=== PATIENT | female | born 1955 | race Caucasian/White ===

== ENCOUNTER → 2017-12-20 08:36 | Outpatient (CLI) | payer MEDICAID, SELFPAY ==
--- NOTE | 2017-12-20 08:45 | MM_ITS ---
MM Dig screening mamm BI w/CAD CAD Screening COMPARISON: Digital mammograms 06/01/2016 and additional views right breast 06/18/2016 and digital mammograms 05/13/2015. INDICATION: There is a history of breast cancer in the patient's 2 paternal aunts. TECHNIQUE: Standard CC and MLO images were obtained. R2 CAD reviewed. FINDINGS: There is a diffusely dense and heterogenic parenchymal pattern lessening the sensitivity of mammography. The possible asymmetric density deep within the outer quadrant right breast seen on the additional views 06/18/2016 is not definitely appreciated. It was noted to be possible cyst on ultrasound exam and may have decompressed. There is no new or suspicious lesion in either breast and there are no suspicious microcalcifications. IMPRESSION: Diffusely dense parenchymal pattern with no suspicious lesion seen BI-RADS Category: 1 Negative RECOMMENDED FOLLOW-UP: 1YR - 1 YEAR FOLLOW-UP (A letter has been sent to the patient regarding results of the study.)
--- NOTE | 2017-12-20 08:45 | XR_ITS ---
DEXA SCAN.-BONE DENSITY STUDY HIPS AND LUMBAR SPINE HISTORY: Postmenopausal female 62-year-old previous bone density study. Previous bone fractures. Toe at age 58. Right ankle age 24. Nonsmoker. Currently on hormone replacement. At least calcified supplements. TECHNIQUE: DEXA scan hip and lumbar spine The most complete data summary and color graphic presentation of the today's ( and any prior ) DEXA findings are available in PACS. Definition and treatment guidelines included. COMPARISON: June 2016 LUMBAR SPINE: L4 vertebral body demonstrates osteopenia and the lowest T score -2.0 with BMD0.955g/cm sq L2 also demonstrates osteopenia with T score of -1.5 & BMD 1.026 g/cm sq Overall mean lumbar L1-L4 T score -1.4 with BMD1.01 g/cm sq . June 2016 DEXA. Mean T score -1.9 with BMD was0.947g/cm sq Thus when comparing today's study to the prior exam there's been a 2.6 % increasing mean bone density at the lumbar spine. . The position appears comparable and there does appear to be increased density at each vertebral level measured observed. I will would also note there is increased density at the spinous process of L3 which is likely projectional a but does not seem to significantly contribute or account for the increased. HIPS: Femoral neck density is best predictor of hip fracture risk . Left femoral neck demonstrates the lowest T score -1.8 with BMD0.783 g/cm sq . Right femoral neck T score the -1.7 with BMD 0.796 Averaging region yields today's overall Hip Mean T score 1.2 with BMD0.86 g/cm sq . June 2016 DEXA T score -1.3 with mean BMD0.84 g/cm sq Thus this reflects a 2.3% increasein overall mean bone density at the hips in the interval.. IMPRESSION 1. LUMBAR SPINE: Overall osteopenia/ with overall lumbar T score -1.4. Most pronounced osteopenia is at L4 with T score -2.0 ... However also note over 6% increased overall bone density lumbar spine since 2016. 2. HIPS:. Osteopenia at hips with overall hip T score -1.2 Osteopenia femoral necks bilaterally with lower left femoral neck T score -1.8 ... However also note the slight overall increased bone density at the hips since 2016 by 2.3% WHO criteria for post-menopausal, Women: Normal: T-score at or above -1 SD Osteopenia: T-score between -1 and -2.5 SD Osteoporosis: T-score at or below -2.5 SD
== END ==
PROVIDERS: Family Provider Emergency Medicine; PCP Emergency Medicine; Visit Provider Obstetrics & Gynecology
DX: Z12.31 Encounter for screening mammogram for malignant neoplasm of breast (principal); Z78.0 Asymptomatic menopausal state; Z13.820 Encounter for screening for osteoporosis
CPT/HCPCS: 77067; 77080

== ENCOUNTER → 2018-01-12 10:52 | Outpatient (CLI) | payer MEDICAID, SELFPAY ==
--- NOTE | 2018-01-12 12:00 | XR_ITS ---
XR chest 2V HISTORY: ITS.REASON: fever ORDERING PHYSICIAN: DORITA Meza PATIENT AGE: 62 years COMPARISON: FINDINGS: The cardiomediastinal silhouette and pulmonary vascularity are within normal limits. Consolidation is present in the left lower lobe posteriorly consistent with pneumonia. Recommend follow-up until clear. No obvious effusion. Remaining lungs are clear. No acute bony anomalies. IMPRESSION: Left lower lobe pneumonia
[2018-01-12 12:06] LABS: Basophils % 0.4 % (0.1-2.0); Eosinophils # 0.1 K/mm3 (0.0-0.4); Eosinophils % 1.3 % (0.1-12.0); Hematocrit 42.1 % (37.0-47.0); Hemoglobin 13.8 g/dL (12.2-16.2); Lymphocytes # 1.3 K/mm3 (0.7-4.5); Lymphocytes % 17.7 K/mm3 (10-50); Mean Corpuscular HGB Conc 32.8 g/dL (31.8-35.4); Mean Corpuscular Hemoglobin 30.8 pg (27.0-31.2); Mean Corpuscular Volume 93.8 fl (81-99); Mean Platelet Volume 7.7 fl (7.4-10.4); Monocytes # 0.5 K/mm3 (0.1-1.0); Monocytes % 6.4 % (1.7-9.3); Neutrophils # 5.3 K/mm3 (1.8-7.8); Neutrophils % 74.1 % (37.0-80.0); Platelet Count 230 K/mm3 (142-424); Red Blood Count 4.49 M/mm3 (4.20-5.40); Red Cell Distribution Width 12.5 % (11.5-17.5); White Blood Count 7.1 K/mm3 (4.8-10.8)
[2018-01-12 13:51] LABS: Alanine Aminotransferase 34 U/L (12-78); Albumin Level 3.7 gm/dL (3.4-5.0); Albumin/Globulin Ratio 1.2 (1.1-1.8); Alkaline Phosphatase 80 U/L (46-116); Anion Gap 15.6 mEq/L (5-15); Aspartate Amino Transferase 25 U/L (15-37); Bilirubin,Total 0.4 mg/dL (0.2-1.0); Blood Urea Nitrogen 9 mg/dL (7-18); Calcium 9.5 mg/dL (8.5-10.1); Carbon Dioxide 26 mmol/L (21.0-32.0); Chloride 103 mmol/L (98-107); Creatinine,Serum 0.73 mg/dL (0.55-1.02); Estimated Glomerular Filt Rate 80 ml/min (>60); GFR (African American) 97 ML/MIN (>60); Globulin 3.1 gm/dl (1.3-3.2); Glucose 98 mg/dL (74-106); Potassium 4.6 mmoL/L (3.5-5.1); Sodium 140 mmol/L (136-145); Total Protein,Serum 6.8 gm/dL (6.4-8.2)
== END ==
PROVIDERS: Visit Provider Physician Assistant
DX: R50.9 Fever, unspecified (principal); M54.9 Dorsalgia, unspecified
CPT/HCPCS: 36415; 71046; 80053; 85025; 87086

== ENCOUNTER 2018-02-13 08:06 | Observation (INO) ==
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
[2018-02-13 08:34] LABS: Basophils # 0.1 K/mm3 (0-0.2); Basophils % 0.4 % (0.1-2.0); Eosinophils # 0.6 K/mm3 (0.0-0.4); Eosinophils % 3.4 % (0.1-12.0); Hematocrit 44.2 % (37.0-47.0); Hemoglobin 14.7 g/dL (12.2-16.2); Lymphocytes # 1.6 K/mm3 (0.7-4.5); Lymphocytes % 9.7 K/mm3 (10-50); Mean Corpuscular HGB Conc 33.3 g/dL (31.8-35.4); Mean Corpuscular Hemoglobin 30.1 pg (27.0-31.2); Mean Corpuscular Volume 90.4 fl (81-99); Mean Platelet Volume 6.8 fl (7.4-10.4); Monocytes # 0.7 K/mm3 (0.1-1.0); Monocytes % 4.2 % (1.7-9.3); Neutrophils # 13.5 K/mm3 (1.8-7.8); Neutrophils % 82.3 % (37.0-80.0); Platelet Count 289 K/mm3 (142-424); Red Blood Count 4.89 M/mm3 (4.20-5.40); Red Cell Distribution Width 12.9 % (11.5-17.5); White Blood Count 16.4 K/mm3 (4.8-10.8)
[2018-02-13 08:46] LABS: Albumin Level 2.8 gm/dL (3.4-5.0); Albumin/Globulin Ratio 0.7 (1.1-1.8); Anion Gap 14.4 mEq/L (5-15); Bilirubin,Total 0.5 mg/dL (0.2-1.0); Calcium 8.8 mg/dL (8.5-10.1); Potassium 3.4 mmoL/L (3.5-5.1); Total Protein,Serum 6.8 gm/dL (6.4-8.2)
[2018-02-13 08:52] LABS: Eosinophils % 2 % (0-3); Lymphocytes % 8 % (10-50); Monocytes % 6 % (2-9); Neutrophils % 82 % (42-76); Total Cells Counted 100
[2018-02-13 08:53] LABS: RBC Morphology Normal
--- NOTE | 2018-02-13 12:59 | Pharmacy Consult Notes ---
[facility] Pharmacy VTE Monitoring - Patient Demographics Admission date: 02/13/18 Report Date: 02/13/18 Time: 12:59 Allergies/Adverse Reactions: Patient Allergies iodine [IODINE] Allergy (Severe, Verified 02/02/18 08:49) I-HIVES/ITCHING bacitracin [From NEOSPORIN ([id number])] Allergy (Intermediate, Verified 08:49) I-HIVES (PT STATES IT IS RELATED TO THE NICKEL IN IT) latex [LATEX] Allergy (Intermediate, Verified 02/02/18 08:49) I-ITCHING mercury (elemental) [MERCURY (ELEMENTAL)] Allergy (Intermediate, Verified 08:49) I-HIVES neomycin [From NEOSPORIN ([id number])] Allergy (Intermediate, Verified 08:49) I-HIVES (PT STATES IT IS RELATED TO THE NICKEL IN IT) nickel [NICKEL] Allergy (Intermediate, Verified 02/02/18 08:49) I-HIVES polymyxin B [From NEOSPORIN ([id number])] Allergy (Intermediate, Verified 08:49) I-HIVES (PT STATES IT IS RELATED TO THE NICKEL IN IT) povidone-iodine [From BETADINE] Allergy (Intermediate, Verified 02/02/18 08:49) I-HIVES shellfish derived [From SHELLFISH (FOOD/DRUG)] Allergy (Intermediate, Verified 02/02/18 08:49) I-HIVES soap [From BETADINE] Allergy (Intermediate, Verified 02/02/18 08:49) I-HIVES codeine [CODEINE] Adverse Reaction (Unknown, Verified 02/02/18 08:49) NA-NAUSEA/VOMITING Height: 1.65 m Weight: 65.317 kg Patient Problems: Current Active Problems Clostridium difficile infection (Acute) - VTE Risk Labs: VTE Related Lab Results Hgb 14.7 g/dL (12.2-16.2) 02/13/18 08:20 Hct 44.2 % (37.0-47.0) 02/13/18 08:20 Plt Count 289 K/mm3 (142-424) 02/13/18 08:20 BUN 4 mg/dL (7-18) L 02/13/18 08:20 Creatinine 0.78 mg/dL (0.55-1.02) 02/13/18 08:20 Estimated Creat Clear 57 mL/min (0-300) 02/13/18 08:20 - Prophylaxis VTE Prophylaxis Ordered?: Yes Types of VTE Prophylaxis: TEDS Knee High Location of Applied Device: Bilateral Lower Extremeties - VTE Diagnosis Confirmed Treatment or plan recommended: Continue Current Treatment
--- NOTE | 2018-02-13 15:20 | History & Physical Report ---
*Admission Date: 02/13/18 *Chief complaint: Diarrhea *History of present illness: Patient presented to ER with 4 day history of abdominal pain and diarrhea. No fever. Had taken OTC meds with no relief. Thought she might be getting dehydrated. Found to have C diff, an elevated white count, and signs of dehydration. She was treated on 01/12/18 with antibiotics for LLL pneumonia, which seems to be almost completely resolved on CXR today, and again on 02/02/18 for sore throat. [facility] History I have reviewed the patient's past medical history: Yes Medical History: Reports:: Anxiety, Hyperlipidemia, Hypertension, Seizures Denies:: Cancer, Diabetes Mellitus Type 1, Diabetes Mellitus Type 2, MRSA Other Medical History: Reports: Anemia, Other Other Surgeries: Yes: Colonoscopy, , Dilation and Curettage, Hysterectomy-Total, Other Amputation: No Fractures: No - *Social History Educational Level: Attended College Smoking Status: Never smoker Tobacco Type: cigarettes # Packs/Day (cigarettes): 1 Alcohol Intake: never Substance Use Type: denies use Occupational Status: employed Housing: house Household Members: none - Psychiatric History Expresses thoughts of harming self/others: None Suicide Plan Description: No Plan Pschychiatric History:: Reports:: Anxiety *Family Hx:: Hypertension, Anemia, Diabetes Review of Systems - Review of Systems Review of systems:: pertinent systems reviewed and negative unless documented below - Constitutional Reports fatigue, Reports malaise - *Gastrointestinal Reports abdominal pain, Reports loose stools, Reports nausea, Reports vomiting, Denies bright, red blood in stools, Denies black, tarry stools Meds Home Medications Medication Instructions Recorded Confirmed Type ascorbic acid (vitamin C) 500 mg 500 mg PO DAILY 09/27/17 02/13/18 History capsule aspirin 81 mg tablet,delayed 81 mg PO DAILY 09/27/17 02/13/18 History release cholecalciferol (vitamin D3) 1,000 1,000 unit PO DAILY 09/27/17 02/13/18 History unit capsule fluticasone 50 mcg/actuation nasal 50 mcg INTRANASAL DAILY 09/27/17 02/13/18 History spray,suspension vitamin B complex tablet 1 tab PO DAILY 09/27/17 02/13/18 History alprazolam 0.25 mg tablet 0.25 mg PO BID PRN 11/15/17 02/13/18 History gabapentin 800 mg tablet 1,600 mg PO HS tab 01/31/18 02/13/18 History Alendronate Sodium [Fosamax] 70 mg PO WEEKLY 02/13/18 02/13/18 History Cetirizine HCl [Zyrtec] 10 mg PO DAILY 02/13/18 02/13/18 History Estradiol 2 mg PO DAILY 02/13/18 02/13/18 History Simvastatin 20 mg PO DAILY 02/13/18 02/13/18 History Allergies Allergy/AdvReac Type Severity Reaction Status Date / Time iodine [IODINE] Allergy Severe I-HIVES/ITC Verified 02/02/18 08:49 SAMMY bacitracin Allergy Intermediate I-HIVES Verified 02/02/18 08:49 [From NEOSPORIN (PT STATES ([id number])] IT IS RELATED TO THE NICKEL IN IT) latex [LATEX] Allergy Intermediate I-ITCHING Verified 02/02/18 08:49 mercury (elemental) Allergy Intermediate I-HIVES Verified 02/02/18 08:49 [MERCURY (ELEMENTAL)] neomycin Allergy Intermediate I-HIVES Verified 02/02/18 08:49 [From NEOSPORIN (PT STATES ([id number])] IT IS RELATED TO THE NICKEL IN IT) nickel [NICKEL] Allergy Intermediate I-HIVES Verified 02/02/18 08:49 polymyxin B Allergy Intermediate I-HIVES Verified 02/02/18 08:49 [From NEOSPORIN (PT STATES ([id number])] IT IS RELATED TO THE NICKEL IN IT) povidone-iodine Allergy Intermediate I-HIVES Verified 02/02/18 08:49 [From BETADINE] shellfish derived Allergy Intermediate I-HIVES Verified 02/02/18 08:49 [From SHELLFISH (FOOD/DRUG)] soap [From BETADINE] Allergy Intermediate I-HIVES Verified 02/02/18 08:49 codeine [CODEINE] AdvReac Unknown NA-NAUSEA/V Verified 02/02/18 08:49 OMITING Exam Vital signs and Labs for Last 24 Hours: Temp Pulse Resp BP Pulse Ox 97.7 F 94 H 18 127/74 98 02/13/18 12:44 02/13/18 12:44 02/13/18 12:44 02/13/18 12:44 02/13/18 13:47 Laboratory Results - last 24 hr 02/13/18 08:20: WBC 16.4 H, RBC 4.89, Hgb 14.7, Hct 44.2, MCV 90.4, MCH 30.1, MCHC 33.3, RDW 12.9, Plt Count 289, MPV 6.8 L, Neut % (Auto) 82.3 H, Lymph % ( Auto) 9.7 L, [place] % (Auto) 4.2, Eos % (Auto) 3.4, Baso % (Auto) 0.4, Neut # ( Auto) 13.5 H, Lymph # (Auto) 1.6, [place] # (Auto) 0.7, Eos # (Auto) 0.6 H, Baso # (Auto) 0.1, Total Counted 100, Neutrophils % (Manual) 82 H, Band Neutrophils % 1.0, Lymphocytes % (Manual) 8 L, Atypical Lymphs % 1.0, Monocytes % (Manual) 6, Eosinophils % (Manual) 2, Platelet Estimate Normal, RBC Morphology Normal 02/13/18 08:20: Sodium 140, Potassium 3.4 L, Chloride 101, Carbon Dioxide 28, Anion Gap 14.4, BUN 4 L, Creatinine 0.78, Estimated Creat Clear 57, Estimated GFR 74, Est GFR ( Amer) 90, Glucose 122 H, Calcium 8.8, Total Bilirubin 0.5, AST 16, ALT 23, Alkaline Phosphatase 108, Total Protein 6.8, Albumin 2.8 L , Globulin 4.0 H, Albumin/Globulin Ratio 0.7 L 02/13/18 08:20: Lipase 88 02/13/18 09:20: Stl Aeromonas (PCR) Not detected, Stl C. cayetanensis PCR Not detected, Stool Rotavirus (PCR) Not detected, Stl Adenov F 40/41 PCR Not detected, Stool Astrovirus (PCR) Not detected, Stool Campylobacter PCR Not detected, Stl C.difficile Tox PCR Detected A, Stool Cryptosporidium PCR Not detected, Stl E.coli Shiga Tox PCR Not detected, Stool E coli O157 PCR Not detected, Stl Enterotoxigenic E PCR Not detected, Stool EPEC (PCR) Not detected , Stool EAEC (PCR) Not detected, Stl E. histolytica PCR Not detected, Stool Giardia Lamblia PCR Not detected, Stool Salmonella PCR Not detected, Stool Sapovirus (PCR) Not detected, Stl P. shigelloides PCR Not detected, Stl Shigella /EIEC PCR Not detected, St Y.enterocolitica PCR Not detected, Stool Vibrio (PCR ) Not detected, Stl Vibrio cholerae PCR Not detected, Stl Norovirus GI/GII PCR Not detected I & O for Last 24 hours: Intake & Output 02/11/18 02/12/18 02/13/18 02/14/18 11:59 11:59 11:59 11:59 Weight 140 lb 144 lb Radiology Reports for the Last 24 Hours: [facility] [address] [facility] [address] [place] [address] CT Scan Report Signed Patient: Annabelle Israel MR#: [id number] : 1955 Acct:[id number] Age/Sex: 62 / F ADM Date: 02/13/18 Loc: ER Attending Dr: Ordering Physician: Shira Kirkland MD Date of Service: 02/13/18 Procedure(s): CT abdomen pelvis wo con Accession Number(s): [id number] cc: Faustino Blas ; Jeremiah Gibbs MD~ CT abdomen pelvis wo con COMPARISON: None HISTORY: Right lower quadrant pain, nausea and vomiting. TECHNIQUE: Multiple axial scans obtained from hemidiaphragms the pelvic floor and were performed without IV or oral contrast. Sagittal and coronal reformats were evaluated as well. FINDINGS: The lower lung bae are clear of infiltrate., there is minimal post inflammatory scarring at the left base. The liver spleen stomach and pancreas appear grossly normal. The gallbladder is normal in size and there is suggestion of hazy increased attenuation along the dependent wall the gallbladder possibly representing biliary sludge and if clinically indicated follow-up ultrasound right upper quadrant may be helpful.. There is a arterial sclerotic calcification of the splenic artery. The adrenal glands are normal. The kidneys are normal size and there are no calculi and is no obstructive uropathy. Small bowel appears normal. There is mild diastases recti. Do not definitely identify the appendix but there are no pericecal inflammatory changes. There is a moderate amount stool in ascending colon. There is been previous hysterectomy. The urinary bladder is well distended with urine, there is no free fluid in the pelvis. There is somewhat accentuated lordotic curvature of the lower lumbar spine. IMPRESSION: 1. Subtle findings suggestive of biliary sludge, consider follow-up ultrasound right upper quadrant 2. Mild diastases recti 3. Accentuated lordotic curvature lower lumbar spine which could predispose to back pain. Dictated By: Faustino Blas Signed By: <Electronically signed by Faustino Blas in OV> 02/13/18 0921 DD/ [address] [place] [address] XRay Report Signed Patient: Annabelle Israel MR#: [id number] : 1955 Acct:[id number] Age/Sex: 62 / F ADM Date: 02/13/18 Loc: I-[address]: Jeremiah Gibbs MD Ordering Physician: Shira Kirkland MD Date of Service: 02/13/18 Procedure(s): XR chest 2V Accession Number(s): [id number] cc: Faustino Blas ; Jeremiah Gibbs MD~ XR chest 2V COMPARISON: PA and lateral chest 01/12/2018 HISTORY: Follow-up pneumonia TECHNIQUE: PA and lateral chest FINDINGS: The lung bae are well expanded. The minimal infiltrate seen left lower lobe is almost completely resolved with minimal infiltrate or scarring remaining posteriorly. Cardiac size is normal. IMPRESSION: Almost completely resolved left lower lobe pneumonia Dictated By: Faustino Blas Signed By: <Electronically signed by Faustino Blas in OV> 02/13/18 1359 DD/ 1357 - Constitutional no acute distress, cooperative - *Routine HEENT Exam Head: Present: normocephalic, atraumatic Eye: Present: PERRL ENT: Present: mucous membranes dry - *Routine Neck Exam Present: supple, full ROM - *Routine Respiratory Exam Present: CTA bilaterally - *Routine Cardiovascular Exam Present: RRR - *Routine Abdominal Exam Present: tenderness - *Routine Extremities Exam Present: full ROM, normal capillary refill - *Routine Skin Exam Present: intact, dry - *Routine Neurological Exam Present: alert, oriented X3 - Routine Psychiatric Exam Present: normal affect H&P: Result - Labs Labs: Short CBC 02/13/18 Range/Units 08:20 WBC 16.4 H (4.8-10.8) K/mm3 Hgb 14.7 (12.2-16.2) g/dL Hct 44.2 (37.0-47.0) % Plt Count 289 (142-424) K/mm3 BMP 02/13/18 08:20 Sodium 140 Potassium 3.4 L Chloride 101 Carbon Dioxide 28 BUN 4 L Creatinine 0.78 Glucose 122 H Calcium 8.8 Liver Function 02/13/18 Range/Units 08:20 Total Bilirubin 0.5 (0.2-1.0) mg/dL AST 16 (15-37) U/L ALT 23 (12-78) U/L Alkaline Phosphatase 108 (46-116) U/L Albumin 2.8 L (3.4-5.0) gm/dL Assessment and Plan (1) Clostridium difficile infection Start date: 02/13/18 Start time: 12:00 Current visit: Yes Status: Acute Category: Medical Code(s): B96.89 - Other specified bacterial agents as the cause of diseases classified elsewhere (2) Dehydration Start date: 02/13/18 Start time: 12:00 Current visit: Yes Status: Acute Category: Medical Code(s): E86.0 - Dehydration
--- NOTE | 2018-02-14 09:15 | Progress Note ---
Internal Medicine - PN: Subj *Date: 02/14/18 *Time: 09:13 Interval history: doing better with c diff - has rash on fa - itchy - nonspecific Exam Vital signs and Labs for Last 24 Hours: Temp Pulse Resp BP Pulse Ox 99.3 F 89 18 122/66 97 02/14/18 07:34 02/14/18 07:34 02/14/18 07:34 02/14/18 07:34 02/14/18 07:34 Laboratory Results - last 24 hr 02/13/18 09:20: Stl Aeromonas (PCR) Not detected, Stl C. cayetanensis PCR Not detected, Stool Rotavirus (PCR) Not detected, Stl Adenov F 40/41 PCR Not detected, Stool Astrovirus (PCR) Not detected, Stool Campylobacter PCR Not detected, Stl C.difficile Tox PCR Detected A, Stool Cryptosporidium PCR Not detected, Stl E.coli Shiga Tox PCR Not detected, Stool E coli O157 PCR Not detected, Stl Enterotoxigenic E PCR Not detected, Stool EPEC (PCR) Not detected , Stool EAEC (PCR) Not detected, Stl E. histolytica PCR Not detected, Stool Giardia Lamblia PCR Not detected, Stool Salmonella PCR Not detected, Stool Sapovirus (PCR) Not detected, Stl P. shigelloides PCR Not detected, Stl Shigella /EIEC PCR Not detected, St Y.enterocolitica PCR Not detected, Stool Vibrio (PCR ) Not detected, Stl Vibrio cholerae PCR Not detected, Stl Norovirus GI/GII PCR Not detected I & O for Last 24 hours: Intake & Output 02/11/18 02/12/18 02/13/18 02/14/18 11:59 11:59 11:59 11:59 Intake Total 2413 / 2413 Output Total 200 / 200 Balance 2213 / 2213 Weight 140 lb 144 lb - Constitutional no acute distress - *Routine HEENT Exam Head: Present: normocephalic Eye: Present: EOMI, PERRL. Absent: conjunctival icterus ENT: Present: mucous membranes dry - *Routine Neck Exam Present: supple - *Routine Respiratory Exam Present: CTA bilaterally - *Routine Cardiovascular Exam Present: murmur - *Routine Abdominal Exam Present: soft, tenderness - *Routine Extremities Exam Present: full ROM - *Routine Skin Exam Present: intact - *Routine Neurological Exam Present: alert, oriented X3, CN II-XII intact - Routine Psychiatric Exam Present: normal affect Assessment and Plan (1) Clostridium difficile infection Start date: 02/13/18 Start time: 12:00 Current visit: Yes Status: Acute Category: Medical Code(s): B96.89 - Other specified bacterial agents as the cause of diseases classified elsewhere (2) Dehydration Start date: 02/13/18 Start time: 12:00 Current visit: Yes Status: Acute Category: Medical Code(s): E86.0 - Dehydration
[2018-02-14 10:15] LABS: Basophils # 0.1 K/mm3 (0-0.2); Basophils % 0.3 % (0.1-2.0); Eosinophils # 0.3 K/mm3 (0.0-0.4); Eosinophils % 1.9 % (0.1-12.0); Hematocrit 37.8 % (37.0-47.0); Hemoglobin 12.3 g/dL (12.2-16.2); Lymphocytes # 1.3 K/mm3 (0.7-4.5); Lymphocytes % 8.6 K/mm3 (10-50); Mean Corpuscular HGB Conc 32.6 g/dL (31.8-35.4); Mean Corpuscular Hemoglobin 29.5 pg (27.0-31.2); Mean Corpuscular Volume 90.5 fl (81-99); Mean Platelet Volume 6.8 fl (7.4-10.4); Monocytes # 0.6 K/mm3 (0.1-1.0); Monocytes % 4.1 % (1.7-9.3); Neutrophils # 12.9 K/mm3 (1.8-7.8); Neutrophils % 85.1 % (37.0-80.0); Platelet Count 267 K/mm3 (142-424); Red Blood Count 4.18 M/mm3 (4.20-5.40); Red Cell Distribution Width 13.1 % (11.5-17.5); White Blood Count 15.1 K/mm3 (4.8-10.8)
[2018-02-14 10:34] LABS: Anion Gap 11.9 mEq/L (5-15)
[2018-02-14 11:07] LABS: Potassium 2.9 mmoL/L (3.5-5.1)
[2018-02-14 12:13] LABS: Eosinophils % 4 % (0-3); Lymphocytes % 10 % (10-50); Monocytes % 3 % (2-9); Neutrophils % 83 % (42-76); Total Cells Counted 100
[2018-02-14 12:14] LABS: RBC Morphology Normal
[2018-02-15 06:44] LABS: Basophils # 0.1 K/mm3 (0-0.2); Basophils % 0.4 % (0.1-2.0); Eosinophils # 0.4 K/mm3 (0.0-0.4); Eosinophils % 2.5 % (0.1-12.0); Hematocrit 41.6 % (37.0-47.0); Hemoglobin 13.4 g/dL (12.2-16.2); Lymphocytes # 1.3 K/mm3 (0.7-4.5); Lymphocytes % 8.7 K/mm3 (10-50); Mean Corpuscular HGB Conc 32.2 g/dL (31.8-35.4); Mean Corpuscular Hemoglobin 29.2 pg (27.0-31.2); Mean Corpuscular Volume 90.7 fl (81-99); Mean Platelet Volume 6.8 fl (7.4-10.4); Monocytes # 0.6 K/mm3 (0.1-1.0); Monocytes % 3.9 % (1.7-9.3); Neutrophils # 12.9 K/mm3 (1.8-7.8); Neutrophils % 84.5 % (37.0-80.0); Platelet Count 319 K/mm3 (142-424); Red Blood Count 4.59 M/mm3 (4.20-5.40); White Blood Count 15.3 K/mm3 (4.8-10.8)
[2018-02-15 07:39] VITALS: BP 104/66
--- NOTE | 2018-02-15 08:14 | Progress Note ---
Internal Medicine - PN: Subj *Date: 02/15/18 *Time: 08:11 Interval history: doing better with less diarrhea - and will advance diet and still low potassium Exam Vital signs and Labs for Last 24 Hours: Temp Pulse Resp BP Pulse Ox 98.7 F 76 18 104/66 94 L 02/15/18 07:38 02/15/18 07:38 02/15/18 07:38 02/15/18 07:38 02/15/18 07:38 Laboratory Results - last 24 hr 02/14/18 09:40: WBC 15.1 H, RBC 4.18 L, Hgb 12.3, Hct 37.8, MCV 90.5, MCH 29.5, MCHC 32.6, RDW 13.1, Plt Count 267, MPV 6.8 L, Neut % (Auto) 85.1 H, Lymph % ( Auto) 8.6 L, [place] % (Auto) 4.1, Eos % (Auto) 1.9, Baso % (Auto) 0.3, Neut # ( Auto) 12.9 H, Lymph # (Auto) 1.3, [place] # (Auto) 0.6, Eos # (Auto) 0.3, Baso # ( Auto) 0.1, Total Counted 100, Neutrophils % (Manual) 83 H, Lymphocytes % (Manual ) 10, Monocytes % (Manual) 3, Eosinophils % (Manual) 4 H, Platelet Estimate Normal, RBC Morphology Normal 02/14/18 09:40: Sodium 139, Potassium 2.9 L*, Chloride 104, Carbon Dioxide 26, Anion Gap 11.9, BUN 2 L D, Creatinine 0.57 D, Estimated Creat Clear 59, Estimated GFR 107, Est GFR ( Amer) 129 D, Glucose 107 H 02/15/18 06:10: WBC 15.3 H, RBC 4.59, Hgb 13.4, Hct 41.6, MCV 90.7, MCH 29.2, MCHC 32.2, RDW 13.0, Plt Count 319, MPV 6.8 L, Neut % (Auto) 84.5 H, Lymph % ( Auto) 8.7 L, [place] % (Auto) 3.9, Eos % (Auto) 2.5, Baso % (Auto) 0.4, Neut # ( Auto) 12.9 H, Lymph # (Auto) 1.3, [place] # (Auto) 0.6, Eos # (Auto) 0.4, Baso # ( Auto) 0.1 02/15/18 06:10: Sodium 142, Potassium 3.0 L, Chloride 105, Carbon Dioxide 28, Anion Gap 12.0, BUN 1 L D, Creatinine 0.56, Estimated Creat Clear 59, Estimated GFR 109, Est GFR ( Amer) 132, Glucose 111 H I & O for Last 24 hours: Intake & Output 02/12/18 02/13/18 02/14/18 02/15/18 11:59 11:59 11:59 11:59 Intake Total 2413 / 2413 1200 / 1200 Output Total 200 / 200 1400 / 1400 Balance 2213 / 2213 -200 / -200 Weight 140 lb 144 lb 143 lb 15.989 oz - Constitutional no acute distress - *Routine HEENT Exam Head: Present: normocephalic Eye: Present: EOMI, PERRL. Absent: conjunctival icterus ENT: Present: mucous membranes dry - *Routine Neck Exam Present: supple - *Routine Respiratory Exam Absent: CTA bilaterally - *Routine Cardiovascular Exam Present: RRR, murmur - *Routine Abdominal Exam Present: soft. Absent: tenderness - *Routine Extremities Exam Present: full ROM. Absent: calf tenderness - *Routine Skin Exam Present: intact - *Routine Neurological Exam Present: alert, oriented X3, CN II-XII intact - Routine Psychiatric Exam Present: normal affect Assessment and Plan (1) Clostridium difficile infection Start date: 02/13/18 Start time: 12:00 Current visit: Yes Status: Acute Category: Medical Code(s): B96.89 - Other specified bacterial agents as the cause of diseases classified elsewhere (2) Dehydration Start date: 02/13/18 Start time: 12:00 Current visit: Yes Status: Acute Category: Medical Code(s): E86.0 - Dehydration (3) Hypokalemia Current visit: Yes Status: Acute Category: Medical Code(s): E87.6 - Hypokalemia
[2018-02-15 10:19] LABS: Eosinophils % 2 % (0-3); Lymphocytes % 17 % (10-50); Monocytes % 3 % (2-9); Neutrophils % 78 % (42-76); Total Cells Counted 100
[2018-02-15 10:21] LABS: RBC Morphology Normal
--- NOTE | 2018-02-15 12:03 | Discharge Summary ---
General - General Admission date:: 02/13/18 Discharge date: 02/15/18 HPI HPI: Patient presented to ER with 4 day history of abdominal pain and diarrhea. No fever. Had taken OTC meds with no relief. Thought she might be getting dehydrated. Found to have C diff, an elevated white count, and signs of dehydration. She was treated on 01/12/18 with antibiotics for LLL pneumonia, which seems to be almost completely resolved on CXR today, and again on 02/02/18 for sore throat. Hospital Course Hospital Course: pt did better with ivf and k supp and on flagyl- no fever does have rash to ext surface most consistent with atopic dermatitis - no fever and no bloddy stool Objective Vital signs: Temp Pulse Resp BP Pulse Ox 98.7 F 76 18 104/66 94 L 02/15/18 07:38 02/15/18 07:38 02/15/18 07:38 02/15/18 07:38 02/15/18 07:38 no acute distress, average body habitus - *Routine HEENT Exam Head: Present: normocephalic Eye: Present: EOMI, PERRL. Absent: conjunctival icterus ENT: Present: mucous membranes dry - *Routine Neck Exam Present: supple - *Routine Respiratory Exam Present: CTA bilaterally - *Routine Cardiovascular Exam Present: RRR, murmur - *Routine Abdominal Exam Present: soft - *Routine Extremities Exam Present: full ROM - *Routine Skin Exam Present: intact - *Routine Neurological Exam Present: alert, oriented X3, CN II-XII intact - Routine Psychiatric Exam Present: normal affect Results Labs on day of discharge: Labs from last 24 hours 02/15/18 02/15/18 02/14/18 06:10 06:10 09:40 WBC 15.3 H RBC 4.59 Hgb 13.4 Hct 41.6 MCV 90.7 MCH 29.2 MCHC 32.2 RDW 13.0 Plt Count 319 MPV 6.8 L Neut % (Auto) 84.5 H Lymph % (Auto) 8.7 L [place] % (Auto) 3.9 Eos % (Auto) 2.5 Baso % (Auto) 0.4 Neut # (Auto) 12.9 H Lymph # (Auto) 1.3 [place] # (Auto) 0.6 Eos # (Auto) 0.4 Baso # (Auto) 0.1 Total Counted 100 100 Neutrophils % (Manual) 78 H 83 H Lymphocytes % (Manual) 17 10 Monocytes % (Manual) 3 3 Eosinophils % (Manual) 2 4 H Platelet Estimate Normal Normal RBC Morphology Normal Normal Sodium 142 Potassium 3.0 L Chloride 105 Carbon Dioxide 28 Anion Gap 12.0 BUN 1 L D Creatinine 0.56 Estimated Creat Clear 59 Estimated GFR 109 Est GFR ( Amer) 132 Glucose 111 H DS: Diagnosis - Discharge Diagnosis (1) Clostridium difficile infection Status: Acute (2) Dehydration Status: Acute (3) Hypokalemia Status: Acute Discharge Plan - Patient Discharge Instructions ACTIVITY: Continue current activity DIET: continue same diet Patient Instructions: Antibiotic-associated Colitis -- C difficile - Follow up Plan Disposition: Home, Self-[facility] Medications: Home Medications Medication Instructions Recorded Confirmed Type ascorbic acid (vitamin C) 500 mg 500 mg PO DAILY 09/27/17 02/13/18 History capsule aspirin 81 mg tablet,delayed 81 mg PO DAILY 09/27/17 02/13/18 History release cholecalciferol (vitamin D3) 1,000 1,000 unit PO DAILY 09/27/17 02/13/18 History unit capsule fluticasone 50 mcg/actuation nasal 50 mcg INTRANASAL DAILY 09/27/17 02/13/18 History spray,suspension vitamin B complex tablet 1 tab PO DAILY 09/27/17 02/13/18 History alprazolam 0.25 mg tablet 0.25 mg PO BID PRN 11/15/17 02/13/18 History gabapentin 800 mg tablet 1,600 mg PO HS tab 01/31/18 02/13/18 History Alendronate Sodium [Fosamax] 70 mg PO WEEKLY 02/13/18 02/13/18 History Cetirizine HCl [Zyrtec] 10 mg PO DAILY 02/13/18 02/13/18 History Estradiol 2 mg PO DAILY 02/13/18 02/13/18 History Simvastatin 20 mg PO DAILY 02/13/18 02/13/18 History Prescriptions/Medication Reconciliation: New metroNIDAZOLE [metroNIDAZOLE 500mg Tablet] 500 mg PO TID #30 tab Continue vitamin B complex tablet 1 tab PO DAILY cholecalciferol (vitamin D3) 1,000 unit capsule 1,000 unit PO DAILY ascorbic acid (vitamin C) 500 mg capsule 500 mg PO DAILY fluticasone 50 mcg/actuation nasal spray,suspension 50 mcg INTRANASAL DAILY aspirin 81 mg tablet,delayed release 81 mg PO DAILY alprazolam 0.25 mg tablet 0.25 mg PO BID PRN PRN Reason: Anxiety gabapentin 800 mg tablet 1,600 mg PO HS tab Estradiol 2 mg PO DAILY Cetirizine HCl [Zyrtec] 10 mg PO DAILY Alendronate Sodium [Fosamax] 70 mg PO WEEKLY Simvastatin 20 mg PO DAILY
== END 2018-02-15 14:52 | disposition home or self-care (01) ==
LOC: ER 08:06 → 2ND 08:06
PROVIDERS: ADMIT Emergency Medicine; ATTEND Emergency Medicine

== ENCOUNTER → 2018-02-17 13:38 | Outpatient (REF) | payer MEDICAID, SELFPAY ==
[2018-02-17 19:10] LABS: Anion Gap 13.8 mEq/L (5-15); Blood Urea Nitrogen 9 mg/dL (7-18); Carbon Dioxide 27 mmol/L (21.0-32.0); Chloride 103 mmol/L (98-107); Creatinine,Serum 0.66 mg/dL (0.55-1.02); Estimated Glomerular Filt Rate 90 ml/min (>60); GFR (African American) 109 ML/MIN (>60); Glucose 101 mg/dL (74-106); Potassium 3.8 mmoL/L (3.5-5.1); Sodium 140 mmol/L (136-145)
== END ==
LOC: LAB 13:38
PROVIDERS: Visit Provider Physician Assistant
DX: E87.6 Hypokalemia (principal)
CPT/HCPCS: 80048

== ENCOUNTER → 2018-03-24 11:40 | Outpatient (CLI) | payer MEDICAID, SELFPAY ==
[2018-03-24 14:40] LABS: Adenovirus F 40/41, stool Not Detected (NotDetected); Astrovirus Not Detected (NotDetected); Campylobacter Not Detected (NotDetected); Cryptosporidium Not Detected (NotDetected); Cyclospora Cayetanesis Not Detected (NotDetected); Entamoeba histolytica Not Detected (NotDetected); Enteroaggregative E coli Not Detected (NotDetected); Enteropathogenic E coli Not Detected (NotDetected); Enterotoxigenic E coli Not Detected (NotDetected); Giardia lamblia Not Detected (NotDetected); Norovirus Not Detected (NotDetected); Plesimonas Shigalloides, PCR Not Detected (NotDetected); Rotavirus A Not Detected (NotDetected); Salmonella, PCR Not Detected (NotDetected); Sapovirus Not Detected (NotDetected); Shiga-like toxin E coli Not Detected (NotDetected); Shigella Enterovasive E coli Not Detected (NotDetected); Vibrio Cholerae Not Detected (NotDetected); Vibrio, PCR Not Detected (NotDetected); Yersinia Entercolitica, PCR Not Detected (NotDetected)
[2018-03-24 15:00] LABS: Occult Blood,Stool Negative (Negative)
[2018-03-24 17:41] LABS: Clostridium Difficile A/B, PCR Detected (NotDetected)
== END ==
PROVIDERS: Visit Provider Physician Assistant
DX: A04.72 Enterocolitis due to Clostridium difficile, not specified as recurrent (principal)
CPT/HCPCS: 82272; 87205; 87507; G0328

== ENCOUNTER → 2018-05-25 10:58 | Outpatient (CLI) | payer MEDICAID, SELFPAY | PROVIDERS: Visit Provider Emergency Medicine | DX: N39.0 Urinary tract infection, site not specified (principal) | CPT/HCPCS: 87086; 87088; 87186 ==

== ENCOUNTER 2018-05-31 08:10 | Outpatient (CLI) | payer MEDICAID, SELFPAY ==
[2018-05-31 08:16] VITALS: BMI 22.8
[2018-05-31 08:44] LABS: Blood Urea Nitrogen 15 mg/dL (7-18); Creatinine Clearance Estimated 56 mL/min (0-300); Creatinine,Serum 0.82 mg/dL (0.55-1.02); Estimated Glomerular Filt Rate 70 ml/min (>60); GFR (African American) 85 ML/MIN (>60)
[2018-05-31 09:53] VITALS: BP 138/78; PULSE 68; RESP 20; TEMP 36.9; O2SAT 96
--- NOTE | 2018-05-31 09:53 | HMH.PHACONS ---
- Pharmacy Consult Date: 05/31/18 Time: 09:53 Referring provider: BENEDICTO MCBRIDE PA-C Reason for Consult:: VANCOMYCIN DOSING Allergies and ADEs:: Allergies Allergy/AdvReac Type Severity Reaction Status Date / Time iodine [IODINE] Allergy Severe I-HIVES/ITC Verified 05/31/18 08:44 SAMMY bacitracin Allergy Intermediate I-HIVES Verified 05/31/18 08:44 [From NEOSPORIN (PT STATES ([id number])] IT IS RELATED TO THE NICKEL IN IT) latex [LATEX] Allergy Intermediate I-ITCHING Verified 05/31/18 08:44 mercury (elemental) Allergy Intermediate I-HIVES Verified 05/31/18 08:44 [MERCURY (ELEMENTAL)] neomycin Allergy Intermediate I-HIVES Verified 05/31/18 08:44 [From NEOSPORIN (PT STATES ([id number])] IT IS RELATED TO THE NICKEL IN IT) nickel [NICKEL] Allergy Intermediate I-HIVES Verified 05/31/18 08:44 polymyxin B Allergy Intermediate I-HIVES Verified 05/31/18 08:44 [From NEOSPORIN (PT STATES ([id number])] IT IS RELATED TO THE NICKEL IN IT) povidone-iodine Allergy Intermediate I-HIVES Verified 05/31/18 08:44 [From BETADINE] shellfish derived Allergy Intermediate I-HIVES Verified 05/31/18 08:44 [From SHELLFISH (FOOD/DRUG)] soap [From BETADINE] Allergy Intermediate I-HIVES Verified 05/31/18 08:44 metronidazole [From Flagyl] Allergy Rash Verified 05/31/18 08:44 codeine [CODEINE] AdvReac Unknown NA-NAUSEA/V Verified 05/25/18 09:59 OMITING Home Medications:: Home Medications Medication Instructions Recorded Confirmed Type ascorbic acid (vitamin C) 500 mg 500 mg PO DAILY 09/27/17 05/31/18 History capsule aspirin 81 mg tablet,delayed 81 mg PO DAILY 09/27/17 05/31/18 History release cholecalciferol (vitamin D3) 1,000 1,000 unit PO DAILY 09/27/17 05/31/18 History unit capsule vitamin B complex tablet 1 tab PO DAILY 09/27/17 05/31/18 History alprazolam 0.25 mg tablet 0.25 mg PO BID PRN 11/15/17 05/31/18 History Estradiol 2 mg PO DAILY 02/13/18 05/31/18 History ferrous sulfate 325 mg (65 mg 325 mg PO DAILY tab 05/04/18 05/31/18 History iron) tablet Amlodipine Besylate [Norvasc 5mg 5 mg PO DAILY 05/31/18 05/31/18 History tablet] Height: 1.65 m Weight: 62.142 kg Laboratory Results:: Laboratory Results - last 24 hr 05/31/18 08:28: BUN 15, Creatinine 0.82, Estimated Creat Clear 56, Estimated GFR 70, Est GFR ( Amer) 85 Medical History: Reports:: Anxiety, Hyperlipidemia, Hypertension, Seizures Denies:: Cancer, Diabetes Mellitus Type 1, Diabetes Mellitus Type 2, MRSA Assessment and Plan - Assessment and plan all Dx Assessment and Plan for all problems:: BASED ON PATIENT FACTORS, RECOMMEND VANCOMYCIN 1500 MG IV ONCE TODAY, THEN VANCOMYCIN 1250 MG IV Q24H. PHARMACY WILL FOLLOW DAILY AND ADJUST APPROPRIATE.
[2018-05-31 10:30] VITALS: BP 122/78; PULSE 68; RESP 20; TEMP 36.9; O2SAT 96
[2018-05-31 11:00] VITALS: BP 144/70; PULSE 68; RESP 20; TEMP 36.9; O2SAT 96
--- NOTE | 2018-05-31 11:45 | XR_ITS ---
XR chest portable PICC plac HISTORY: ITS.REASON: PICC line placement ORDERING PHYSICIAN: DORITA Meza PATIENT AGE: 62 years COMPARISON: None FINDINGS: The cardiomediastinal silhouette and pulmonary vascularity are within normal limits. There is some patchy density in the right lung base could be due to summation artifact infiltrate or atelectasis.. Left upper extremity PICC line has been inserted. The tip is in good position at the distal SVC. No acute bony abnormalities. IMPRESSION: Satisfactory position of the tip of the PICC line Right basilar airspace disease
[2018-05-31 12:10] VITALS: BP 136/70; PULSE 66; RESP 20; TEMP 36.4; O2SAT 96
[2018-05-31 12:20] LABS: Potassium 3.9 mmoL/L (3.5-5.1)
== END 2018-05-31 12:10 | disposition home or self-care (01) ==
LOC: INF 08:45
PROVIDERS: Family Provider Emergency Medicine; PCP Emergency Medicine; Visit Provider Physician Assistant
DX: N39.0 Urinary tract infection, site not specified (principal)
CPT/HCPCS: 36569; 71045; 82565; 84132; 84520; 96365; 96366; C1751; J3370

== ENCOUNTER 2018-06-01 08:15 | Outpatient (CLI) | payer MEDICAID, SELFPAY ==
[2018-06-01 08:40] VITALS: BP 118/72; PULSE 77; RESP 18; TEMP 36.6; O2SAT 98
[2018-06-01 09:10] VITALS: BP 121/69; PULSE 79; RESP 18; O2SAT 97
[2018-06-01 09:40] VITALS: BP 119/67; PULSE 81; RESP 18; O2SAT 97
[2018-06-01 10:10] VITALS: BP 123/65; PULSE 78; RESP 18; O2SAT 98
[2018-06-01 10:40] VITALS: BP 126/71; PULSE 80; RESP 18; O2SAT 97
[2018-06-01 10:50] VITALS: BP 120/70; PULSE 75; RESP 18; O2SAT 98
== END 2018-06-01 10:50 | disposition home or self-care (01) ==
LOC: INF 08:18
PROVIDERS: Family Provider Emergency Medicine; PCP Emergency Medicine; Visit Provider Physician Assistant
DX: N39.0 Urinary tract infection, site not specified (principal)
CPT/HCPCS: 96365; 96366; J3370

== ENCOUNTER 2018-06-02 08:27 | Outpatient (CLI) | payer MEDICAID, SELFPAY ==
[2018-06-02 08:38] VITALS: BP 138/74; PULSE 77; RESP 18; TEMP 36.4; O2SAT 97
[2018-06-02 08:57] VITALS: BP 132/69; PULSE 79; RESP 18; TEMP 36.5; O2SAT 98
[2018-06-02 10:00] VITALS: BP 118/70; PULSE 77; RESP 16; O2SAT 97
[2018-06-02 10:45] VITALS: BP 130/86; PULSE 82; RESP 18; TEMP 36.6; O2SAT 98
[2018-06-02 11:25] VITALS: BP 124/71; PULSE 70; RESP 18; TEMP 36.6; O2SAT 97
== END 2018-06-02 11:30 | disposition home or self-care (01) ==
LOC: INF 08:27
PROVIDERS: Family Provider Emergency Medicine; PCP Emergency Medicine; Visit Provider Physician Assistant
DX: N39.0 Urinary tract infection, site not specified (principal)
CPT/HCPCS: 96365; 96366; J3370

== ENCOUNTER → 2018-06-03 08:19 | Outpatient (CLI) | payer MEDICAID, SELFPAY ==
[2018-06-03] VITALS (8 sets, daily range): BP systolic 121–133; BP diastolic 68–84; PULSE 74–84; RESP 15–18; TEMP 36.5–37; O2SAT 96–99; BMI 22.6
[2018-06-03 08:49] LABS: Anion Gap 13.9 mEq/L (5-15); Blood Urea Nitrogen 10 mg/dL (7-18); Calcium 9.1 mg/dL (8.5-10.1); Carbon Dioxide 28 mmol/L (21.0-32.0); Chloride 105 mmol/L (98-107); Creatinine Clearance Estimated 55 mL/min (0-300); Creatinine,Serum 0.77 mg/dL (0.55-1.02); Estimated Glomerular Filt Rate 75 ml/min (>60); GFR (African American) 91 ML/MIN (>60); Glucose 121 mg/dL (74-106); Potassium 3.9 mmoL/L (3.5-5.1); Sodium 143 mmol/L (136-145)
[2018-06-03 09:03] LABS: Vancomycin,Trough 4.1 mcg/ml (10.0-20.0)
--- NOTE | 2018-06-03 09:30 | HMH.PHACONS ---
- Pharmacy Consult Date: 06/03/18 Time: 09:30 Referring provider: BENEDICTO MCBRIDE Reason for Consult:: VANCOMYCIN TROUGH LEVEL Allergies and ADEs:: Allergies Allergy/AdvReac Type Severity Reaction Status Date / Time iodine [IODINE] Allergy Severe I-HIVES/ITC Verified 05/31/18 08:44 SAMMY bacitracin Allergy Intermediate I-HIVES Verified 05/31/18 08:44 [From NEOSPORIN (PT STATES ([id number])] IT IS RELATED TO THE NICKEL IN IT) latex [LATEX] Allergy Intermediate I-ITCHING Verified 05/31/18 08:44 mercury (elemental) Allergy Intermediate I-HIVES Verified 05/31/18 08:44 [MERCURY (ELEMENTAL)] neomycin Allergy Intermediate I-HIVES Verified 05/31/18 08:44 [From NEOSPORIN (PT STATES ([id number])] IT IS RELATED TO THE NICKEL IN IT) nickel [NICKEL] Allergy Intermediate I-HIVES Verified 05/31/18 08:44 polymyxin B Allergy Intermediate I-HIVES Verified 05/31/18 08:44 [From NEOSPORIN (PT STATES ([id number])] IT IS RELATED TO THE NICKEL IN IT) povidone-iodine Allergy Intermediate I-HIVES Verified 05/31/18 08:44 [From BETADINE] shellfish derived Allergy Intermediate I-HIVES Verified 05/31/18 08:44 [From SHELLFISH (FOOD/DRUG)] soap [From BETADINE] Allergy Intermediate I-HIVES Verified 05/31/18 08:44 metronidazole [From Flagyl] Allergy Rash Verified 05/31/18 08:44 codeine [CODEINE] AdvReac Unknown NA-NAUSEA/V Verified 05/25/18 09:59 OMITING Home Medications:: Home Medications Medication Instructions Recorded Confirmed Type ascorbic acid (vitamin C) 500 mg 500 mg PO DAILY 09/27/17 06/02/18 History capsule aspirin 81 mg tablet,delayed 81 mg PO DAILY 09/27/17 06/02/18 History release cholecalciferol (vitamin D3) 1,000 1,000 unit PO DAILY 09/27/17 06/03/18 History unit capsule vitamin B complex tablet 1 tab PO DAILY 09/27/17 06/02/18 History alprazolam 0.25 mg tablet 0.25 mg PO BID PRN 11/15/17 06/02/18 History Estradiol 2 mg PO DAILY 02/13/18 06/02/18 History ferrous sulfate 325 mg (65 mg 325 mg PO DAILY tab 05/04/18 06/02/18 History iron) tablet Amlodipine Besylate [Norvasc 5mg 5 mg PO DAILY 05/31/18 06/02/18 History tablet] Height: 1.65 m Weight: 61.689 kg Laboratory Results:: Laboratory Results - last 24 hr 06/03/18 08:27: Vancomycin Trough 4.1 L 06/03/18 08:27: Sodium 143, Potassium 3.9, Chloride 105, Carbon Dioxide 28, Anion Gap 13.9, BUN 10 D, Creatinine 0.77, Estimated Creat Clear 55, Estimated GFR 75, Est GFR ( Amer) 91, Glucose 121 H, Calcium 9.1 Medical History: Reports:: Anxiety, Hyperlipidemia, Hypertension, Seizures Denies:: Cancer, Diabetes Mellitus Type 1, Diabetes Mellitus Type 2, MRSA Assessment and Plan - Assessment and plan all Dx Assessment and Plan for all problems:: BASED ON VANCOMYCIN TROUGH LEVEL, RECOMMEND CHANGING INTERVAL TO VANCOMYCIN 1250 MG IV Q12H. PATIENT'S LAST DOSE WILL BE 06/06/18. PHARMACY WILL CONTINUE TO MONITOR DAILY AND ADJUST APPROPRIATE.
== END ==
PROVIDERS: Family Provider Emergency Medicine; PCP Emergency Medicine; Visit Provider Physician Assistant
DX: N39.0 Urinary tract infection, site not specified (principal)
CPT/HCPCS: 80048; 80202; 96365; 96366; G0463; J3370

== ENCOUNTER → 2018-06-04 08:31 | Outpatient (CLI) | payer MEDICAID, SELFPAY ==
[2018-06-04 09:32] VITALS: BP 135/77; PULSE 81; RESP 18; O2SAT 100
[2018-06-04 22:42] VITALS: BP 110/65; PULSE 71; RESP 16; TEMP 36.7; O2SAT 100
[2018-06-04 23:25] VITALS: BP 121/77; PULSE 82; RESP 18; TEMP 36.5; O2SAT 98
== END ==
PROVIDERS: Family Provider Emergency Medicine; PCP Emergency Medicine; Visit Provider Physician Assistant
DX: N39.0 Urinary tract infection, site not specified (principal)
CPT/HCPCS: 96365; 96366; G0463; J3370

== ENCOUNTER 2018-06-05 08:41 | Outpatient (CLI) | payer MEDICAID, SELFPAY ==
[2018-06-05 09:31] VITALS: BP 115/69; BP 116/72; PULSE 71; PULSE 78; RESP 16; TEMP 36.4; TEMP 36.6; O2SAT 98; O2SAT 99; BMI 22.8
[2018-06-05 09:42] LABS: Vancomycin,Trough 15.6 mcg/ml (10.0-20.0)
[2018-06-05 09:44] LABS: Anion Gap 8.5 mEq/L (5-15); Blood Urea Nitrogen 13 mg/dL (7-18); Calcium 8.7 mg/dL (8.5-10.1); Carbon Dioxide 29 mmol/L (21.0-32.0); Chloride 107 mmol/L (98-107); Creatinine,Serum 0.81 mg/dL (0.55-1.02); Estimated Glomerular Filt Rate 71 ml/min (>60); GFR (African American) 86 ML/MIN (>60); Glucose 112 mg/dL (74-106); Sodium 144 mmol/L (136-145)
--- NOTE | 2018-06-05 09:46 | HMH.PHACONS ---
- Pharmacy Consult Date: 06/05/18 Time: 09:46 Referring provider: DR. SIERRA Reason for Consult:: VANCOMYCIN TROUGH LEVEL Allergies and ADEs:: Allergies Allergy/AdvReac Type Severity Reaction Status Date / Time iodine [IODINE] Allergy Severe I-HIVES/ITC Verified 05/31/18 08:44 SAMMY bacitracin Allergy Intermediate I-HIVES Verified 05/31/18 08:44 [From NEOSPORIN (PT STATES ([id number])] IT IS RELATED TO THE NICKEL IN IT) latex [LATEX] Allergy Intermediate I-ITCHING Verified 05/31/18 08:44 mercury (elemental) Allergy Intermediate I-HIVES Verified 05/31/18 08:44 [MERCURY (ELEMENTAL)] neomycin Allergy Intermediate I-HIVES Verified 05/31/18 08:44 [From NEOSPORIN (PT STATES ([id number])] IT IS RELATED TO THE NICKEL IN IT) nickel [NICKEL] Allergy Intermediate I-HIVES Verified 05/31/18 08:44 polymyxin B Allergy Intermediate I-HIVES Verified 05/31/18 08:44 [From NEOSPORIN (PT STATES ([id number])] IT IS RELATED TO THE NICKEL IN IT) povidone-iodine Allergy Intermediate I-HIVES Verified 05/31/18 08:44 [From BETADINE] shellfish derived Allergy Intermediate I-HIVES Verified 05/31/18 08:44 [From SHELLFISH (FOOD/DRUG)] soap [From BETADINE] Allergy Intermediate I-HIVES Verified 05/31/18 08:44 metronidazole [From Flagyl] Allergy Rash Verified 05/31/18 08:44 codeine [CODEINE] AdvReac Unknown NA-NAUSEA/V Verified 05/25/18 09:59 OMITING Home Medications:: Home Medications Medication Instructions Recorded Confirmed Type ascorbic acid (vitamin C) 500 mg 500 mg PO DAILY 09/27/17 06/02/18 History capsule aspirin 81 mg tablet,delayed 81 mg PO DAILY 09/27/17 06/02/18 History release cholecalciferol (vitamin D3) 1,000 1,000 unit PO DAILY 09/27/17 06/03/18 History unit capsule vitamin B complex tablet 1 tab PO DAILY 09/27/17 06/02/18 History alprazolam 0.25 mg tablet 0.25 mg PO BID PRN 11/15/17 06/02/18 History Estradiol 2 mg PO DAILY 02/13/18 06/02/18 History ferrous sulfate 325 mg (65 mg 325 mg PO DAILY tab 05/04/18 06/02/18 History iron) tablet Amlodipine Besylate [Norvasc 5mg 5 mg PO DAILY 05/31/18 06/02/18 History tablet] Height: 0 cm Weight: 0 g Laboratory Results:: Laboratory Results - last 24 hr 06/05/18 09:11: Vancomycin Trough 15.6 06/05/18 09:11: Sodium 144, Potassium 4.0, Chloride 107, Carbon Dioxide 29, Anion Gap 8.5, BUN 13 D, Creatinine 0.81, Estimated GFR 71, Est GFR ( Amer) 86, Glucose 112 H, Calcium 8.7 Medical History: Reports:: Anxiety, Hyperlipidemia, Hypertension, Seizures Denies:: Cancer, Diabetes Mellitus Type 1, Diabetes Mellitus Type 2, MRSA Assessment and Plan - Assessment and plan all Dx Assessment and Plan for all problems:: BASED ON PATIENT FACTORS, RECOMMEND CONTINUING CURRENT DOSE OF VANCOMYCIN (1,250MG Q12H IV) TO FINISH COURSE TOMORROW 06/06/18. PHARMACY WILL CONTINUE TO MONITOR. -DARLENE GILL, IRINA
[2018-06-05 23:11] VITALS: BP 131/77; PULSE 67; RESP 12; TEMP 36.2; O2SAT 99
== END 2018-06-05 12:20 | disposition home or self-care (01) ==
LOC: INF 08:42
PROVIDERS: Family Provider Emergency Medicine; PCP Emergency Medicine; Visit Provider Physician Assistant
DX: N39.0 Urinary tract infection, site not specified (principal)
CPT/HCPCS: 80048; 80202; 96365; 96366; G0463; J3370

== ENCOUNTER → 2018-06-06 08:30 | Outpatient (CLI) | payer MEDICAID, SELFPAY ==
[2018-06-06] VITALS (7 sets, daily range): BP systolic 110–129; BP diastolic 60–75; PULSE 66–83; RESP 16–18; TEMP 36.4–36.9; O2SAT 96–98; BMI 22.8
== END ==
PROVIDERS: Family Provider Emergency Medicine; PCP Emergency Medicine; Visit Provider Physician Assistant
DX: N39.0 Urinary tract infection, site not specified (principal)
CPT/HCPCS: 87086; 96365; 96366; J3370

== ENCOUNTER 2018-06-13 09:59 | Outpatient (CLI) | payer MEDICAID, SELFPAY ==
[2018-06-13 10:25] VITALS: BP 128/70; PULSE 68; RESP 20; TEMP 36.9; O2SAT 95
[2018-06-13 11:17] VITALS: BMI 22.8
[2018-06-13 11:38] LABS: Microscopic, Urine URINE MICROSCOPIC (MICROSCOPIC)
[2018-06-13 11:45] LABS: Appearance,Urine CLEAR (Clear); Bilirubin,Urine Negative (Negative); Blood, Urine Negative (Negative); Color,Urine YELLOW (Yellow); Glucose,Urine (UA) Negative (Negative); Ketones,Urine Negative (Negative); Leukocyte Esterase,Urine Negative (Negative); Nitrate,Urine Negative (Negative); Protein,Urine Negative (Negative); Specific Gravity, Urine <= 1.005 (1.005-1.030); Urobilinogen,Urine 0.2 EU/dl (0.2)
[2018-06-13 11:57] LABS: Bacteria,Urine 4+ /lpf
== END 2018-06-13 10:25 | disposition home or self-care (01) ==
LOC: INF 09:59
PROVIDERS: Family Provider Emergency Medicine; PCP Emergency Medicine; Visit Provider Physician Assistant
DX: N39.0 Urinary tract infection, site not specified (principal); Z45.2 Encounter for adjustment and management of vascular access device
CPT/HCPCS: 81001; 87086; G0463

== ENCOUNTER 2019-02-23 20:32 | Emergency (ER) | payer MEDICARE, MEDICAID, SELFPAY ==
[2019-02-23 20:50] VITALS: BP 143/81; PULSE 76; RESP 16; TEMP 36.8; O2SAT 100; BMI 24.0
--- NOTE | 2019-02-23 21:18 | HMH.EDUTC ---
[facility] [place] Clinical Impression: Rash Disposition: Home, Self-Care Condition on Discharge: Good Instructions: Urticaria (Alternative Therapy), Hives, DI for Rash Additional Instructions: Over the counter benadryl cream/hydrocortisone cream may help with rash and itching *Aveeno oatmeal bathes may help to soothe the skin and help dry up rash and help with itching Go through your house look what has changed any soap, shampoo, laundry detergent etc that may be causing you to breakout Return if needed Follow up with family doctor if symptoms return or continue for further treatment and evaluation Referrals: Jeremiah Gibbs MD [Primary Care Provider] - As needed Time of Disposition: 21:53 Medical Decision Making - Joey Inquiry Pt receiving controlled substance: No Joey was queried for this patient: No Vital Signs: 02/23/19 20:50 Temperature 98.3 F Temperature Source Oral Pulse Rate [Right Brachial] 76 Respiratory Rate 16 Blood Pressure [Right Arm] 143/81 H Blood Pressure Mean [Right Arm] 101 Blood Pressure Source [Right Arm] Automatic Cuff Blood Pressure Position [Right Arm] Sitting 02 Sat by Pulse Oximetry 100 Oxygen Delivery Method Room Air Orders (Tests/Meds): ED MEDICATIONS Discontinued Medications Generic Name Dose Route Start Last Admin Trade Name Freq PRN Reason Stop Dose Admin Methylprednisolone Sodium Succinate 125 mg 02/23/19 21:18 02/23/19 21:21 Solu-Medrol 125mg/2ml Vial IM 02/23/19 21:19 125 mg ONCE ONE Administration - Reevaluation(s) Time: 21:52 Reevaluation #1: Rash appears to be improving and diminishing [facility] [place] - General Stated complaint: Rash Time Seen by Provider: 02/23/19 21:19 Mode of Arrival: Ambulatory Source of Information: Patient Limitations: No Limitations Description of Symptoms (Recalled from Triage Doc. by RN): RASH X2 WEEKS; PATIENT STATES SHE FINISHED PRESCRIBED STEROIDS ON WEDNESDAY, HOWEVER RASH IS NOT BETTER HEENT Symptoms (Recalled from RN notes): No Resp Symptoms (Recalled from RN notes): No Skin Symptoms (Recalled from RN notes): Yes MS Symptoms (Recalled from RN notes): No Functional Status (Recalled from RN notes): N/A - History of Present Illness Provider Complaint: Patient states that she has been being treated by family doctor for a rash State that she has had the rash for about 2 weeks and finished her steroids on Wednesday State that it was doing better then earlier today she noticed that she was starting to break out again on her left arm State that last night she had some itching and had to get up and take some benadryl so tonight she came back to see if she needed more steriods - Related Data Home Medications Medication Instructions Recorded Confirmed Ferrous Sulfate 325 mg PO DAILY 02/23/19 02/23/19 Gabapentin [Neurontin 800mg Tab] 800 mg PO QHS 02/23/19 02/23/19 buPROPion HCl [Wellbutrin 75mg 75 mg PO BID 02/23/19 02/23/19 Tablet] Previous Rx's Medication Instructions Recorded estradiol 2 mg tablet 2 mg PO DAILY #90 tab 11/07/18 amlodipine 5 mg tablet 5 mg PO DAILY #90 tab 02/09/19 simvastatin 20 mg tablet 20 mg PO DAILY #90 tab 02/09/19 Allergies Allergy/AdvReac Type Severity Reaction Status Date / Time iodine [IODINE] Allergy Severe I-HIVES/ITC Verified 02/06/19 09:58 SAMMY bacitracin Allergy Intermediate I-HIVES Verified 02/06/19 09:58 [From NEOSPORIN (PT STATES ([id number])] IT IS RELATED TO THE NICKEL IN IT) latex [LATEX] Allergy Intermediate I-ITCHING Verified 02/06/19 09:58 mercury (elemental) Allergy Intermediate I-HIVES Verified 02/06/19 09:58 [MERCURY (ELEMENTAL)] neomycin Allergy Intermediate I-HIVES Verified 02/06/19 09:58 [From NEOSPORIN (PT STATES ([id number])] IT IS RELATED TO THE NICKEL IN IT) nickel [NICKEL] Allergy Intermediate I-HIVES Verified 02/06/19 09:58 polymyxin B Allergy Intermediate I-HIVES Verified
--- NOTE | 2019-02-23 21:22 | ED_ITS ---
[facility] [place] Clinical Impression: Rash Disposition: Home, Self-Care Condition on Discharge: Good Instructions: Urticaria (Alternative Therapy), Hives, DI for Rash Additional Instructions: Over the counter benadryl cream/hydrocortisone cream may help with rash and itching *Aveeno oatmeal bathes may help to soothe the skin and help dry up rash and help with itching Go through your house look what has changed any soap, shampoo, laundry detergent etc that may be causing you to breakout Return if needed Follow up with family doctor if symptoms return or continue for further treatment and evaluation Referrals: Jeremiah Gibbs MD [Primary Care Provider] - As needed Time of Disposition: 21:53 Medical Decision Making - Joey Inquiry Pt receiving controlled substance: No Joey was queried for this patient: No Vital Signs: 02/23/19 20:50 Temperature 98.3 F Temperature Source Oral Pulse Rate [Right Brachial] 76 Respiratory Rate 16 Blood Pressure [Right Arm] 143/81 H Blood Pressure Mean [Right Arm] 101 Blood Pressure Source [Right Arm] Automatic Cuff Blood Pressure Position [Right Arm] Sitting 02 Sat by Pulse Oximetry 100 Oxygen Delivery Method Room Air Orders (Tests/Meds): ED MEDICATIONS Discontinued Medications Generic Name Dose Route Start Last Admin Trade Name Freq PRN Reason Stop Dose Admin Methylprednisolone Sodium Succinate 125 mg 02/23/19 21:18 02/23/19 21:21 Solu-Medrol 125mg/2ml Vial IM 02/23/19 21:19 125 mg ONCE ONE Administration - Reevaluation(s) Time: 21:52 Reevaluation #1: Rash appears to be improving and diminishing [facility] [place] - General Stated complaint: Rash Time Seen by Provider: 02/23/19 21:19 Mode of Arrival: Ambulatory Source of Information: Patient Limitations: No Limitations Description of Symptoms (Recalled from Triage Doc. by RN): RASH X2 WEEKS; PATIENT STATES SHE FINISHED PRESCRIBED STEROIDS ON WEDNESDAY, HOWEVER RASH IS NOT BETTER HEENT Symptoms (Recalled from RN notes): No Resp Symptoms (Recalled from RN notes): No Skin Symptoms (Recalled from RN notes): Yes MS Symptoms (Recalled from RN notes): No Functional Status (Recalled from RN notes): N/A - History of Present Illness Provider Complaint: Patient states that she has been being treated by family doctor for a rash State that she has had the rash for about 2 weeks and finished her steroids on Wednesday State that it was doing better then earlier today she noticed that she was starting to break out again on her left arm State that last night she had some itching and had to get up and take some benadryl so tonight she came back to see if she needed more steriods - Related Data Home Medications Medication Instructions Recorded Confirmed Ferrous Sulfate 325 mg PO DAILY 02/23/19 02/23/19 Gabapentin [Neurontin 800mg Tab] 800 mg PO QHS 02/23/19 02/23/19 buPROPion HCl [Wellbutrin 75mg 75 mg PO BID 02/23/19 02/23/19 Tablet] Previous Rx's Medication Instructions Recorded estradiol 2 mg tablet 2 mg PO DAILY #90 tab 11/07/18 amlodipine 5 mg tablet 5 mg PO DAILY #90 tab 02/09/19 simvastatin 20 mg tablet 20 mg PO DAILY #90 tab 02/09/19
[2019-02-23 21:55] VITALS: BP 143/81; PULSE 76; RESP 16; TEMP 36.8; O2SAT 100
== END 2019-02-23 21:57 | disposition home or self-care (01) ==
PROVIDERS: Emergency Provider Nurse Practitioner; PCP Emergency Medicine
DX: R21 Rash and other nonspecific skin eruption (principal); I73.00 Raynaud's syndrome without gangrene; G25.0 Essential tremor; E78.5 Hyperlipidemia, unspecified; I10 Essential (primary) hypertension
CPT/HCPCS: G0463; 96372; 99201

== ENCOUNTER → 2019-08-07 14:02 | Outpatient (CLI) | payer MEDICARE, MEDICAID, SELFPAY ==
[2019-08-07 14:15] LABS: Basophils % 0.8 % (0.1-2.0); Eosinophils # 0.2 K/mm3 (0.0-0.4); Eosinophils % 4.2 % (0.1-12.0); Hematocrit 44.1 % (37.0-47.0); Hemoglobin 14.4 g/dL (12.2-16.2); Lymphocytes # 1.6 K/mm3 (0.7-4.5); Lymphocytes % 34.6 % (10-50); Mean Corpuscular HGB Conc 32.6 g/dL (31.8-35.4); Mean Corpuscular Hemoglobin 31.4 pg (27.0-31.2); Mean Corpuscular Volume 96.2 fl (81-99); Mean Platelet Volume 8.8 fl (7.4-10.4); Monocytes # 0.3 K/mm3 (0.1-1.0); Monocytes % 6.5 % (1.7-9.3); Neutrophils # 2.6 K/mm3 (1.8-7.8); Platelet Count 280 K/mm3 (142-424); Red Blood Count 4.59 M/mm3 (4.20-5.40); Red Cell Distribution Width 12.6 % (11.5-17.5); White Blood Count 4.7 K/mm3 (4.8-10.8)
[2019-08-07 16:25] LABS: Alanine Aminotransferase 45 U/L (12-78); Albumin/Globulin Ratio 1.4 (1.1-1.8); Alkaline Phosphatase 67 U/L (46-116); Anion Gap 14.1 mEq/L (5-15); Aspartate Amino Transferase 30 U/L (15-37); Bilirubin,Total 0.6 mg/dL (0.2-1.0); Blood Urea Nitrogen 18 mg/dL (7-18); Calcium 9.3 mg/dL (8.5-10.1); Carbon Dioxide 27 mmol/L (21.0-32.0); Chloride 103 mmol/L (98-107); Chol/HDL Ratio 2.5 (1-3.5); Cholesterol 200 mg/dL (140-200); Creatinine,Serum 0.69 mg/dL (0.55-1.02); Estimated Glomerular Filt Rate 85 ml/min (>60); Free T4 (Free Thyroxine) 0.87 ng/dl (0.76-1.46); GFR (African American) 103 ML/MIN (>60); Globulin 2.9 gm/dl (1.3-3.2); Glucose 97 mg/dL (74-106); HDL Cholesterol 81 mg/dL (29-89); LDL Cholesterol 107 mg/dL (0-130); Potassium 4.1 mmoL/L (3.5-5.1); Sodium 140 mmol/L (136-145); Thyroid Stimulating Hormone 1.69 uIU/ml (0.358-3.740); Total Protein,Serum 6.9 gm/dL (6.4-8.2); Triglycerides 62 mg/dL (30-200); VLDL Cholesterol 12 mg/dL (0-40)
[2019-08-09 10:22] LABS: Vitamin D 25 Hydroxy 61.4 ng/mL (30.0-100.0)
== END ==
PROVIDERS: Visit Provider Emergency Medicine
DX: I10 Essential (primary) hypertension (principal); M54.9 Dorsalgia, unspecified; E78.5 Hyperlipidemia, unspecified
CPT/HCPCS: 80053; 80061; 82652; 84439; 84443; 85025

== ENCOUNTER → 2020-01-26 13:20 | Outpatient (CLI) | payer MEDICARE, SELFPAY ==
[2020-01-26 14:54] LABS: Basophils % 0.9 % (0.1-2.0); Eosinophils # 0.2 K/mm3 (0.0-0.4); Eosinophils % 4.8 % (0.1-12.0); Hematocrit 43.6 % (37.0-47.0); Lymphocytes # 1.3 K/mm3 (0.7-4.5); Lymphocytes % 30.9 % (10-50); Mean Corpuscular Hemoglobin 30.4 pg (27.0-31.2); Mean Corpuscular Volume 94.8 fl (81-99); Mean Platelet Volume 8.2 fl (7.4-10.4); Monocytes # 0.4 K/mm3 (0.1-1.0); Monocytes % 8.1 % (1.7-9.3); Neutrophils # 2.4 K/mm3 (1.8-7.8); Neutrophils % 55.3 % (37.0-80.0); Platelet Count 291 K/mm3 (142-424); Red Cell Distribution Width 13.1 % (11.5-17.5); White Blood Count 4.3 K/mm3 (4.8-10.8)
[2020-01-26 15:23] LABS: Chloride 103 mmol/L (98-107); Potassium 4.2 mmoL/L (3.5-5.1); Sodium 140 mmol/L (136-145)
[2020-01-26 15:25] LABS: Blood Urea Nitrogen 13 mg/dl (7-17); Estimated Glomerular Filt Rate 84 ml/min (>60); GFR (African American) 101 ML/MIN (>60)
[2020-01-26 15:26] LABS: Alanine Aminotransferase 28 U/L (12-78); Albumin Level 4.5 g/dl (3.5-5.0); Albumin/Globulin Ratio 1.8 (1.1-1.8); Alkaline Phosphatase 49 U/L (38-126); Anion Gap 10.2 mEq/L (5-15); Aspartate Amino Transferase 36 U/L (14-36); Bilirubin,Total 0.8 mg/dl (0.2-1.3); Calcium 9.7 mg/dl (8.4-10.2); Carbon Dioxide 31 mmol/L (22.0-30.0); Cholesterol 178 mg/dl (140-200); Globulin 2.5 g/dL (1.3-3.2); Glucose 63 mg/dl (74-100); HDL Cholesterol 87 mg/dl (40-60); Triglycerides 88 mg/dl (30-150); VLDL Cholesterol 18 mg/dL (0-40)
[2020-01-26 15:37] LABS: Direct LDL Cholesterol 91.21 mg/dL (100-129)
[2020-01-26 15:43] LABS: T4 (Thyroxine) 8.1 ug/dl (5.53-11.0)
[2020-01-26 15:56] LABS: Thyroid Stimulating Hormone 1.48 uIU/mL (0.465-4.68)
[2020-01-27 08:15] LABS: Vitamin D 25 Hydroxy 88.2 ng/mL (30.0-100.0)
== END ==
PROVIDERS: Visit Provider Emergency Medicine
DX: I10 Essential (primary) hypertension (principal); E78.5 Hyperlipidemia, unspecified
CPT/HCPCS: 80053; 80061; 82652; 84436; 84443; 85025

== ENCOUNTER → 2020-04-24 08:22 | Outpatient (CLI) | payer MEDICARE, SELFPAY ==
--- NOTE | 2020-04-24 08:22 | MM_ITS ---
PROCEDURE: MM DIG SCREENING MAMM BI W/CAD Digital Breast Tomosynthesis Included CLINICAL INDICATION: screening There is a history of breast cancer in the patient's 2 paternal aunts. The patient currently is on estradiol. COMPARISON: MG DMSB DIG MAMM-SCREEN ANEL from 06/01/2016 MG DMDXUAVR DIG MAMM-DX UNI ADD VIEWS-RT from 06/18/2016 MG SCBI MM Dig screening mamm BI w/CAD from 12/20/2017 TECHNIQUE: Standard CC and MLO images and 3D Tomosynthesis was obtained. R2 CAD reviewed. FINDINGS: There is a diffusely dense and heterogenic parenchymal pattern as noted previously. The findings are fairly symmetrical bilaterally. However there is a possible developing asymmetric density outer quadrant left breast at 3 o'clock position best appreciated on the vikas views. Recommend the patient return for spot compression MLO and CC views and ultrasound for additional evaluation. There are no suspicious microcalcifications. There are fatty replaced nodes in both axilla. IMPRESSION: Dense and heterogenic parenchymal pattern with possible new developing lesion left breast BI-RAD Category: 0 Need Additional Imaging Evaluation FOLLOW-UP: IMM Immediate Follow-up Recommended (A letter has been sent to the patient regarding results of the study.) Dictated Dr. Man Jo MD 04/26/2020 12:57 Dr. Man Blas MD in [place] 04/26/2020 12:57
== END ==
PROVIDERS: PCP Emergency Medicine; Visit Provider Emergency Medicine
DX: Z12.31 Encounter for screening mammogram for malignant neoplasm of breast (principal)
CPT/HCPCS: 77063; 77067

== ENCOUNTER → 2020-05-21 13:19 | Outpatient (CLI) | payer MEDICARE, SELFPAY ==
--- NOTE | 2020-05-21 13:19 | US_ITS ---
PROCEDURE: US BREAST LT COMPLETE CLINICAL INDICATION: abn mamm COMPARISON: US BR US BREAST-RT COMPLETE W/AXILLA from 06/24/2016 FINDINGS: There is somewhat diffusely heterogenic echogenicity the breast parenchyma. There is a small benign-appearing cystic structure at the 12 o'clock position near the nipple measuring 0.4 x 0.3 by 0.4 cm. There is a small hypoechoic and likely cystic lesion with internal echoes at the 1 o'clock position near the nipple measuring 0.7 x 0.3 by 0.6 cm. This likely is a complex cyst. There is a dominant cystic-appearing lesion at the 3 o'clock position outer breast measuring 1.2 x 0.7 by 1.3 cm and this appears to correspond in size and location to the density seen on the previous mammogram and the follow-up mammogram performed the same date. There are several other smaller benign-appearing cystic lesions throughout the breast. There is no suspicious solid lesion. There are normal appearing nodes in the axilla. IMPRESSION: Ultrasound confirmation of dominant benign-appearing cyst 3 o'clock position corresponding in size and location to the possible new density seen on the previous mammogram and the six-month follow-up mammogram performed this date. Dictated by: Dr. Man Blas MD 05/24/2020 09:34 Dr. Man Blas MD in [place] 05/24/2020 09:34
--- NOTE | 2020-05-21 13:19 | MM_ITS ---
PROCEDURE: MM DIG MAMM DX UNILAT LT CAD Digital Breast Tomosynthesis Included CLINICAL INDICATION: spot compression view COMPARISON: MG DMDXUAVR DIG MAMM-DX UNI ADD VIEWS-RT from 06/18/2016 MG SCBI MM Dig screening mamm BI w/CAD from 12/20/2017 MG MM DIG SCREENING MAMM BI W/CAD from 04/24/2020 US US BREAST LT COMPLETE from 05/21/2020 TECHNIQUE: Standard CC and MLO images and 3D Tomosynthesis was obtained. R2 CAD reviewed. Spot-compression MLO and CC views were obtained as well. FINDINGS: Again noted is a markedly heterogenic and dense parenchymal pattern. The new asymmetric density seen on recent mammogram 04/24/2020 does not press out on the additional views. Ultrasound exam performed the same date showed multiple cystic structures the largest of which is at the a 3 o'clock position which corresponds in size and location to the density on the mammogram and appears represent a benign cyst with smooth borders and mild acoustic enhancement. There are no suspicious solid lesions seen on the ultrasound exam. Recommend the patient continue with yearly screening mammography IMPRESSION: Markedly dense and heterogenic parenchymal pattern with apparent new benign-appearing cyst at the 3 o'clock position in this patient who demonstrates multiple benign-appearing cystic structures on the ultrasound exam. BI-RAD Category: 2 Benign Finding(s) FOLLOW-UP: 1YR 1 Year Follow-up (A letter has been sent to the patient regarding results of the study.) Dictated by: Dr. Man Blas MD 05/24/2020 09:00 Dr. Man Blas MD in [place] 05/24/2020 09:00
== END ==
PROVIDERS: PCP Emergency Medicine; Visit Provider Emergency Medicine
DX: R92.8 Other abnormal and inconclusive findings on diagnostic imaging of breast (principal)
CPT/HCPCS: 76641; 77061; 77065; G0279

== ENCOUNTER → 2020-07-01 10:07 | Outpatient (CLI) | payer MEDICARE, SELFPAY ==
--- NOTE | 2020-07-01 10:12 | XR_ITS ---
PROCEDURE: XR DEXA AXIAL SKELETON CLINICAL HISTORY: osteoporosis screening H/o fx COMPARISON: AYSHA BALLESTEROS DEXAAX XR DEXA axial skeleton from 12/20/2017 FINDINGS: The right hip BMD is 0.679 with a T-score of -1.5. The left hip BMD is 0.741 with a T-score of -1.7. The lumbar spine BMD is 0.940 with a T-score of -1.0. Previously the lowest density was in the left femoral neck with a T-score -1.8 IMPRESSION: This patient is considered osteopenic according to the World Health Organization criteria. Bone density is between 10 and 25 percent below young normal. Fracture risk is moderate. Treatment is advised. Based on these results a follow-up exam is recommended in 2 year. Dictated by: Brant James MD 07/02/2020 11:17 Brant James MD in [place] 07/02/2020 11:17
== END ==
PROVIDERS: PCP Emergency Medicine; Visit Provider Nurse Practitioner Obstetrics & Gynecology
DX: Z78.0 Asymptomatic menopausal state (principal); Z87.310 Personal history of (healed) osteoporosis fracture
CPT/HCPCS: 77080

== ENCOUNTER → 2020-07-02 10:32 | Outpatient (CLI) | payer MEDICARE, SELFPAY ==
[2020-07-02 10:57] LABS: Basophils % 0.6 % (0.1-2.0); Eosinophils # 0.3 K/mm3 (0.0-0.4); Eosinophils % 5.4 % (0.1-12.0); Hematocrit 45.5 % (37.0-47.0); Hemoglobin 14.5 g/dL (12.2-16.2); Lymphocytes # 1.3 K/mm3 (0.7-4.5); Lymphocytes % 23.7 % (10-50); Mean Corpuscular HGB Conc 31.8 g/dL (31.8-35.4); Mean Corpuscular Hemoglobin 30.7 pg (27.0-31.2); Mean Corpuscular Volume 96.6 fl (81-99); Mean Platelet Volume 7.4 fl (7.4-10.4); Monocytes # 0.3 K/mm3 (0.1-1.0); Monocytes % 4.8 % (1.7-9.3); Neutrophils # 3.7 K/mm3 (1.8-7.8); Neutrophils % 65.4 % (37.0-80.0); Platelet Count 267 K/mm3 (142-424); Red Blood Count 4.71 M/mm3 (4.20-5.40); Red Cell Distribution Width 12.1 % (11.5-17.5); White Blood Count 5.6 K/mm3 (4.8-10.8)
[2020-07-02 12:25] LABS: Chloride 102 mmol/L (98-107); Potassium 4.3 mmoL/L (3.5-5.1); Sodium 138 mmol/L (136-145)
[2020-07-02 12:27] LABS: Alanine Aminotransferase 27 U/L (12-78); Aspartate Amino Transferase 32 U/L (14-36); Blood Urea Nitrogen 14 mg/dl (7-17); Estimated Glomerular Filt Rate 84 ml/min (>60); GFR (African American) 101 ML/MIN (>60)
[2020-07-02 12:28] LABS: Albumin Level 4.9 g/dl (3.5-5.0); Albumin/Globulin Ratio 1.8 (1.1-1.8); Alkaline Phosphatase 59 U/L (38-126); Anion Gap 11.3 mEq/L (5-15); Bilirubin,Total 0.9 mg/dl (0.2-1.3); Calcium 9.4 mg/dl (8.4-10.2); Carbon Dioxide 29 mmol/L (22.0-30.0); Chol/HDL Ratio 2.3 (1-3.5); Cholesterol 195 mg/dl (140-200); Globulin 2.7 g/dL (1.3-3.2); Glucose 95 mg/dl (74-100); HDL Cholesterol 84 mg/dl (40-60); Total Protein,Serum 7.6 g/dl (6.3-8.2); Triglycerides 111 mg/dl (30-150); VLDL Cholesterol 22 mg/dL (0-40)
[2020-07-02 12:39] LABS: Direct LDL Cholesterol 88.41 mg/dL (100-129)
[2020-07-02 12:48] LABS: Triiodothryronine (T3) Uptake 26 % (23.5-40.5)
[2020-07-02 12:49] LABS: Free Thyroxine Index 2.4 ug/dL (5.93-13.13); T4 (Thyroxine) 9.3 ug/dl (5.53-11.0)
[2020-07-02 13:02] LABS: Thyroid Stimulating Hormone 1.91 uIU/mL (0.465-4.68)
[2020-07-04 10:17] LABS: Estradiol 53.4 pg/mL (.)
[2020-07-08 04:15] LABS: 1,25 Dihydroxy Vitamin D 28 pg/mL (.); 1,25-Dihydroxy, Vitamin D-2 <10 pg/mL (.); 1,25-Dihydroxy, Vitamin D-3 28 pg/mL (.)
== END ==
PROVIDERS: Visit Provider Nurse Practitioner Obstetrics & Gynecology
DX: L65.9 Nonscarring hair loss, unspecified (principal); R53.82 Chronic fatigue, unspecified; Z01.419 Encounter for gynecological examination (general) (routine) without abnormal findings; E78.5 Hyperlipidemia, unspecified
CPT/HCPCS: 36415; 80053; 80061; 82652; 82670; 84436; 84443; 84479; 85025

== ENCOUNTER → 2020-10-18 12:02 | Outpatient (CLI) | payer MEDICARE, SELFPAY ==
--- NOTE | 2020-10-18 12:05 | CA_ITS ---
APPROVED REPORT EXAM: Comprehensive 2D, Doppler, and color-flow Echocardiogram Collections Specialist: Julia Deluan CRT Ht: 5 ft 3 in Wt: 148lbs BSA: 1.70 BP: 114/72 mmHg Indications: murmur, HTN, smoker, hyperlipidemia, Raynauds, hyperlipidemia 2D Dimensions LVOT 1.84 cm (M/F) 1.5-2.5 M-Mode Dimensions RVDd 1.87 cm (0.9-2.6) LA Diam 2.66 cm (1.9-4.0) LVDd 3.65 cm (3.5-5.7) Ao Diam 2.69 cm (2.0-3.7) LVDs 2.65 cm (3.5-5.7) IVSd 0.72 cm (0.6-1.1) PWd 1.09 cm (0.6-1.1) EF (Teich) 54.20% FS 27.40% EDV (Teich) 56.30 mL ESV (Teich) 25.80 mL LV Diastology E Decel Time 157.00 (160-240 msec) E/A Ratio 0.8 MED E' 7.80 (< 7 cm/sec) E'/MED E' Ratio 8.08 (>14) LAT E' 9.20 (<10 cm/sec) E/LAT E' Ratio 6.85 (>14) Mitral Valve MV E Max Johnny. 63.00 (40-130 cm/s) MV A Velocity 79.00 (40-130 cm/s) E/A Ratio 0.79 MV Decel. Time 157.00 (160-240 ms) MV PHT 46.00 ms Left Ventricle Left atrium is mildly enlarged, left ventricle is normal size, mild concentric left ventricular hypertrophy, visually estimated ejection fraction 55% with no regional wall motion abnormality, grade 1 diastolic dysfunction seen without tissue Doppler evidence of raise left atrial pressure. Right Ventricle Right atrium and right ventricle are normal size and contractility. Aortic Valve Aortic valve is minimally thickened and fibrosed, there is no aortic stenosis or aortic insufficiency. Mitral Valve Mitral valve is grossly normal, there is mild mitral regurgitation. Tricuspid Valve Tricuspid valve is grossly normal, there is mild tricuspid regurgitation, tricuspid regurgitation jet velocity is inadequate for calculation of the right ventricular systolic pressure. Pulmonic Valve Pulmonic valve is poorly visualized. Great Vessels Aortic root is normal size. Pericardium No significant pericardial effusion noted. Conclusion 1. Mildly enlarged left atrium, normal left ventricular size, mild concentric left ventricular hypertrophy, visually estimated ejection fraction 55% with no regional wall motion abnormality, grade 1 diastolic dysfunction seen without tissue Doppler evidence of raise left atrial pressure. 2. Mild mitral and tricuspid regurgitation. 3. No significant pericardial effusion noted. Electronically signed by : Kyler Vega, 10/18/2020 16:55:55
--- NOTE | 2020-10-18 12:05 | CA_ITS ---
APPROVED REPORT Pin Sorter And Bagger: DIVYA Laterality: Bilateral Indications: bruit and dizziness Risk Factors Hypertension: Hyperlipidemia Smoking Doppler Spectral Velocity Analysis ECA (R) 71.30/15.40 cm/s ECA (L) 65.50/16.70 cm/s dICA (R) 93.40/30.00 cm/s dICA (L) 69.50/27.80 cm/s Randy (R) 81.40/30.80 cm/s Randy (L) 80.90/29.90 cm/s pICA (R) 56.50/19.90 cm/s pICA (L) 94.40/31.80 cm/s dCCA (R) 102.80/32.60 cm/s dCCA (L) 91.70/34.30 cm/s pCCA (R) 70.30/22.30 cm/s pCCA (L) 108.80/34.30 cm/s Vert (R) 44.60/13.70 cm/s Vert (L) 56.50/16.30 cm/s ICA/CCA 0.90 ICA/CCA 1.03 Findings Duplex evaluation demonstrates stenosis of the right proximal internal carotid artery <20% with PSV <140 cm/sec, EDV <100 cm/sec, and IC/CC Ratio <4.0. The left carotid arterial system appeared to be normal without stenosis of the bulb or internal carotid artery. Conclusion Duplex evaluation demonstrates stenosis of the right proximal internal carotid artery <20% with PSV <140 cm/sec, EDV <100 cm/sec, and IC/CC Ratio <4.0. The left carotid arterial system appeared to be normal without stenosis of the bulb or internal carotid artery. Electronically signed by : Brant James MD 10/18/2020 16:49:30
== END ==
PROVIDERS: PCP Emergency Medicine; Visit Provider Emergency Medicine
DX: R09.89 Other specified symptoms and signs involving the circulatory and respiratory systems (principal); R42 Dizziness and giddiness; R01.1 Cardiac murmur, unspecified
CPT/HCPCS: 93306; 93880

== ENCOUNTER → 2020-12-24 15:23 | Outpatient (CLI) | payer MEDICARE, SELFPAY ==
[2020-12-24 15:34] LABS: Basophils % 0.6 % (0.1-2.0); Eosinophils # 0.1 K/mm3 (0.0-0.4); Eosinophils % 2.2 % (0.1-12.0); Hemoglobin 15.5 g/dL (12.2-16.2); Lymphocytes # 1.9 K/mm3 (0.7-4.5); Lymphocytes % 28.3 % (10-50); Mean Corpuscular Hemoglobin 31.2 pg (27.0-31.2); Mean Corpuscular Volume 94.6 fl (81-99); Mean Platelet Volume 8.9 fl (7.4-10.4); Monocytes # 0.4 K/mm3 (0.1-1.0); Monocytes % 5.5 % (1.7-9.3); Neutrophils # 4.2 K/mm3 (1.8-7.8); Neutrophils % 63.4 % (37.0-80.0); Platelet Count 256 K/mm3 (142-424); Red Blood Count 4.97 M/mm3 (4.20-5.40); Red Cell Distribution Width 12.8 % (11.5-17.5); White Blood Count 6.6 K/mm3 (4.8-10.8)
[2020-12-24 15:36] LABS: Chloride 103 mmol/L (98-107); Sodium 139 mmol/L (136-145)
[2020-12-24 15:37] LABS: Potassium 4.6 mmoL/L (3.5-5.1)
[2020-12-24 15:39] LABS: Alanine Aminotransferase 25 U/L (12-78); Albumin Level 4.7 g/dl (3.5-5.0); Albumin/Globulin Ratio 1.8 (1.1-1.8); Alkaline Phosphatase 74 U/L (38-126); Anion Gap 10.6 mEq/L (5-15); Aspartate Amino Transferase 30 U/L (14-36); Bilirubin,Total 0.6 mg/dl (0.2-1.3); Blood Urea Nitrogen 15 mg/dl (7-17); Carbon Dioxide 30 mmol/L (22.0-30.0); Estimated Glomerular Filt Rate 100 ml/min (>60); GFR (African American) 121 ML/MIN (>60); Globulin 2.6 g/dL (1.3-3.2); Total Protein,Serum 7.3 g/dl (6.3-8.2)
[2020-12-24 15:40] LABS: Calcium 10.2 mg/dl (8.4-10.2); Glucose 98 mg/dl (74-100)
[2020-12-24 15:57] LABS: T4 (Thyroxine) 9.4 ug/dl (5.53-11.0)
[2020-12-24 17:01] LABS: Erythrocyte Sedimentation Rate 7 mm/hr (0-30)
== END ==
PROVIDERS: Visit Provider Emergency Medicine
DX: H93.19 Tinnitus, unspecified ear (principal); R25.1 Tremor, unspecified; R42 Dizziness and giddiness; E78.5 Hyperlipidemia, unspecified
CPT/HCPCS: 80053; 84436; 84443; 85025; 85651; 86140

== ENCOUNTER → 2021-01-10 09:47 | Outpatient (CLI) | payer MEDICARE, SELFPAY ==
--- NOTE | 2021-01-10 09:47 | MR_ITS ---
PROCEDURE: MR HEAD/BRAIN WO CON CLINICAL INDICATION: tremor, dizziness Pt c/o tremor and dizziness with buzzing in the ears. Pt also states she has a palpable cyst on top of her head to the rit that has been there for years and getting bigger. COMPARISON: MR BRW/O MRI-BRAIN W/O from 07/26/2014 TECHNIQUE: Routine multiplanar multi echo sequences are performed without gadolinium enhancement. FINDINGS: No midline shift, mass effect, intracranial hemorrhage, or hydrocephalus is evident. The cerebellopontine angles, cerebellum, midbrain and brainstem have an unremarkable appearance. There is mild generalized brain volume loss with nonspecific periventricular T2 white matter hyperintensities the pituitary, optic chiasm, corpus callosum, and craniocervical junction have an unremarkable appearance. No mastoid effusion or sinus air-fluid levels evident. There is mild mucosal thickening of the ethmoid sinus on the left. There is a hypointense subcutaneous nodule in the vertex on the right measuring approximately 18 mm. This is slightly increased in size from the previous exam measuring 14 mm. Suggest direct visualization for further evaluation. No underlying bony erosive change or scalloping. IMPRESSION: 1. No acute intracranial findings. 2. Subcutaneous nodule right vertex region of the scalp which is hypointense on T1 and T2 slightly increased in size possibly due to a complicated sebaceous cyst. Suggest correlation with physical exam Dictated by: Brant James MD 01/11/2021 15:09 Brant James MD in [place] 01/11/2021 15:09
== END ==
PROVIDERS: PCP Emergency Medicine; Visit Provider Emergency Medicine
DX: H93.19 Tinnitus, unspecified ear (principal); R25.1 Tremor, unspecified; R42 Dizziness and giddiness
CPT/HCPCS: 70551

== ENCOUNTER → 2021-01-25 10:13 | Outpatient (CLI) | payer MEDICARE, SELFPAY | PROVIDERS: Visit Provider Surgery | DX: Z01.812 Encounter for preprocedural laboratory examination (principal); Z11.52 Encounter for screening for COVID-19; L72.9 Follicular cyst of the skin and subcutaneous tissue, unspecified | CPT/HCPCS: U0003 ==

== ENCOUNTER 2021-01-28 10:58 | Day surgery (SDC) | payer MEDICARE, SELFPAY ==
[2021-01-27 11:15] VITALS: BMI 26.5
[2021-01-28] VITALS (12 sets, daily range): BP systolic 111–138; BP diastolic 55–78; PULSE 57–98; RESP 12–18; TEMP 36.1–43; O2SAT 92–99
--- NOTE | 2021-01-28 12:10 | HMH.ANESCL ---
[facility] Anesthesia Checklist - Patient Identification Patient Identification: Arm Band - Structural Data Admitted From: Home Planned Operative Procedure/s: excision of scalp cyst Consent for Planned Operative Procedure(s) Verified: Yes Verified Documents: Surgical Consent, History and Physical - NPO Status Verified Time NPO: 00:00 - Additional verifications Anesthesia Reactions: No Hx Blood Transfusions: No Blood Transfusion Reaction: No - Airway Assessment C-Spine Mobility Assessed: Yes (mp2) TMJ Mobility Assessed: Yes Dentition: Good Dentition - Neurological Assessment Level of Consciousness: Awake, Alert - Anesthesia Plan Anesthesia Risk discussed: Yes Anesthesia Plan: Verified ASA Class: II Anesthesia Type: General [facility] History I have reviewed the patient's past medical history: Yes Medical History: Reports:: Anxiety, Cancer (cervical), Hyperlipidemia, Hypertension, Seizures Denies:: Diabetes Mellitus Type 1, Diabetes Mellitus Type 2, Internal Pacemaker, MRSA *Have you ever received a pneumonia vaccine?: Yes *Have you received a flu vaccine this season?: Yes Other Medical History: Reports: Anemia, Other. Denies: Blood Transfusion Reaction Anesthesia experience/problems:: nac Other Surgeries: Yes: Colonoscopy, , Dilation and Curettage, Hysterectomy-Total, Other. No: Pacemaker Amputation: No Fractures: No - *Social History Last grade of school completed: Some college Smoking Status: Current every day smoker Tobacco Type: cigarettes # Packs/Day (cigarettes): 1 Alcohol Intake: current Alcohol Intake Frequency:: holidays/special occasions only Substance Use Type: denies use *Occupational Status:: employed Housing: house Household Members: none *Travel in the last 8 weeks: None - Psychiatric History Pschychiatric History:: Reports:: Anxiety Family Hx:: Hypertension, Anemia, Diabetes
--- NOTE | 2021-01-28 13:10 | HMH.ANESI ---
[facility] Anesthesia Record Part I Intake, IV Amount: 1,300 Estimated blood loss (mL): 0 Urine output (mL): 0 Blood Pressure: 138/67 SaO2: 96 Pulse Rate: 98 Respiratory Rate: 12 Temperature: 98 F Patient is:: Awake, Stable Stable to PACU at:: 13:05
--- NOTE | 2021-01-28 13:10 | HMH.OPNOTE ---
Date of procedure: 01/28/21 Pre-op Diagnosis:: Scalp cyst Post-op Diagnosis:: Same Procedure performed:: Excision of cyst from the scalp (excisional length approximately 3 cm) with intermediate complexity closure Surgeon:: Brandon Mckeon MD DIGITAL SALES DIRECTOR:: Juan Frye Anesthesia: LMA Estimated blood loss (mL): 5 Clinical Note:: Patient is a 65-year-old female referred by Dr. Gibbs's office for cyst on scalp. Patient states that this has been present for quite some time. It started as small and has increased in size. She has discomfort from this. She recently underwent MRI due to headaches and this area was noted consistent with subcutaneous sebaceous cyst on the right vertex of the scalp. Patient does wonder if removal would help her headaches, dizziness, and buzzing in her ears. Given the increase in size and local tenderness I feel that excision may be reasonable. I did however inform the patient that it is unlikely her headaches would be resolved with excision and that most assuredly the dizziness and buzzing would likely not be resolved with excision. I explained to her the nature and details and expectations of excision. She understands and does wish to proceed. Patient expressed some concerns about receiving a single dose of cefazolin preoperatively. This is because she has a prior history of C. difficile colitis. She does, however, take cephalexin frequently for urinary tract infections. I feel that the benefit of receiving single dose of preoperative antibiotic would outweigh the low potential risk for development of C. difficile colitis. Operative findings:: Consistent with scalp inclusion cyst Operative note:: Patient was taken the operating room. General anesthesia was induced via LMA. Limited trimming of hair in the region of the cyst was performed. Area was prepped and draped in the standard surgical fashion. Skin was marked with a skin marker for planned elliptical excision. Local anesthetic was infiltrated. Skin incision was made. Dissection was carried down to the cyst capsule. This was dissected free from surrounding tissues using tenotomy scissor dissection. The skin ellipse with the adherent intact cyst was sent off as a specimen. There was good hemostasis. Deep Vicryl suture was placed. 2-0 Vicryl was used to close the subdermal tissues. Skin was closed with adia. Dermabond was applied. There were no immediate complications. Condition: stable Disposition: PACU Specimens:: Scalp cyst Complications:: None immediately apparent
--- NOTE | 2021-01-28 14:17 | P.PN_ITS ---
[facility] Anesthesia Record Part II Discharge Time: 13:35 Destination: Surgical Day Care (OP Surgery) PACU nurse assessment reviewed?: Yes Patient Condition:: Good Anesthesia Complications:: None Swallowing reflex intact?: Yes Cyanosis?: No Blood Pressure: 120/70 Pulse Rate: 70 Temperature: 98 F Mental Status: Alert & Oriented Pain level:: 0 Nausea and/or vomitting:: None Intake, IV Amount: 0
--- NOTE | 2021-01-28 14:30 | SUR.OPER ---
1228-notified MD of pt's concern of taking dose of abx r/t history of c-diff. Reviewed pt's allergies and history w/ and MAURY Conde. reports he wants patient to have Ancef 2gm IVPB xonce for pre op abx. MD reports will discuss and notify pt's family after surgery.
== END 2021-01-28 14:25 | disposition home or self-care (01) ==
LOC: OR 11:00
PROVIDERS: PCP Emergency Medicine; Visit Provider Surgery
DX: L72.11 Pilar cyst (principal); R20.2 Paresthesia of skin; R51.9 Headache, unspecified; F41.9 Anxiety disorder, unspecified; Z85.41 Personal history of malignant neoplasm of cervix uteri; E78.5 Hyperlipidemia, unspecified; I10 Essential (primary) hypertension; R56.9 Unspecified convulsions; D64.9 Anemia, unspecified; Z82.49 Family history of ischemic heart disease and other diseases of the circulatory system; Z83.3 Family history of diabetes mellitus; Z83.2 Family history of diseases of the blood and blood-forming organs and certain disorders involving the immune mechanism; Z88.8 Allergy status to other drugs, medicaments and biological substances
CPT/HCPCS: 11423; 12031; 88304; J2405

== ENCOUNTER → 2022-02-20 14:44 | Outpatient (CLI) | payer MEDICARE, SELFPAY ==
[2022-02-20 14:16] LABS: Alanine Aminotransferase 30 U/L (12-78); Albumin Level 4.2 g/dl (3.5-5.0); Albumin/Globulin Ratio 1.7 (1.1-1.8); Alkaline Phosphatase 73 U/L (38-126); Anion Gap 10.6 mEq/L (5-15); Aspartate Amino Transferase 36 U/L (14-36); Bilirubin,Total 0.5 mg/dl (0.2-1.3); Blood Urea Nitrogen 13 mg/dl (7-17); Calcium 9.4 mg/dl (8.4-10.2); Carbon Dioxide 27 mmol/L (22.0-30.0); Chloride 105 mmol/L (98-107); Chol/HDL Ratio 2.5 (1-3.5); Cholesterol 177 mg/dl (140-200); Estimated Glomerular Filt Rate 83 ml/min (>60); GFR (African American) 101 ML/MIN (>60); Globulin 2.5 g/dL (1.3-3.2); Glucose 98 mg/dl (74-100); HDL Cholesterol 71 mg/dl (40-60); Potassium 3.6 mmoL/L (3.5-5.1); Sodium 139 mmol/L (136-145); Total Protein,Serum 6.7 g/dl (6.3-8.2); Triglycerides 105 mg/dl (30-150); VLDL Cholesterol 21 mg/dL (0-40)
[2022-02-20 14:20] LABS: Basophils # 0.1 K/mm3 (0-0.2); Basophils % 1.6 % (0.1-2.0); Eosinophils # 0.3 K/mm3 (0.0-0.4); Eosinophils % 3.9 % (0.1-12.0); Hematocrit 44.7 % (37.0-47.0); Hemoglobin 14.9 g/dL (12.2-16.2); Lymphocytes # 1.6 K/mm3 (0.7-4.5); Lymphocytes % 24.6 % (10-50); Mean Corpuscular HGB Conc 33.3 g/dL (31.8-35.4); Mean Platelet Volume 8.9 fl (7.4-10.4); Monocytes # 0.3 K/mm3 (0.1-1.0); Monocytes % 5.2 % (1.7-9.3); Neutrophils # 4.1 K/mm3 (1.8-7.8); Neutrophils % 64.6 % (37.0-80.0); Platelet Count 257 K/mm3 (142-424); Red Blood Count 4.66 M/mm3 (4.20-5.40); Red Cell Distribution Width 13.2 % (11.5-17.5); White Blood Count 6.3 K/mm3 (4.8-10.8)
[2022-02-20 14:28] LABS: Direct LDL Cholesterol 68.55 mg/dL (100-129)
[2022-02-20 14:47] LABS: Thyroid Stimulating Hormone 1.68 uIU/mL (0.465-4.68)
== END ==
PROVIDERS: PCP Family Medicine; Visit Provider Family Medicine
DX: F32.A Depression, unspecified (principal); E78.5 Hyperlipidemia, unspecified
CPT/HCPCS: 80053; 80061; 84443; 85025

== ENCOUNTER → 2022-03-12 15:46 | Outpatient (CLI) | payer MEDICARE, SELFPAY ==
[2022-03-12 16:22] LABS: Basophils # 0.1 K/mm3 (0-0.2); Basophils % 2.5 % (0.1-2.0); Eosinophils # 0.1 K/mm3 (0.0-0.4); Eosinophils % 4.2 % (0.1-12.0); Hematocrit 43.2 % (37.0-47.0); Hemoglobin 14.1 g/dL (12.2-16.2); Lymphocytes # 1.5 K/mm3 (0.7-4.5); Mean Corpuscular HGB Conc 32.5 g/dL (31.8-35.4); Mean Corpuscular Hemoglobin 31.5 pg (27.0-31.2); Mean Corpuscular Volume 96.8 fl (81-99); Mean Platelet Volume 8.3 fl (7.4-10.4); Monocytes # 0.3 K/mm3 (0.1-1.0); Neutrophils # 1.4 K/mm3 (1.8-7.8); Neutrophils % 40.1 % (37.0-80.0); Platelet Count 212 K/mm3 (142-424); Red Blood Count 4.47 M/mm3 (4.20-5.40); Red Cell Distribution Width 13.3 % (11.5-17.5); White Blood Count 3.4 K/mm3 (4.8-10.8)
[2022-03-12 16:52] LABS: Chloride 103 mmol/L (98-107); Potassium 3.8 mmoL/L (3.5-5.1); Sodium 137 mmol/L (136-145)
[2022-03-12 16:54] LABS: Alanine Aminotransferase 36 U/L (12-78); Aspartate Amino Transferase 42 U/L (14-36); Blood Urea Nitrogen 8 mg/dl (7-17); Estimated Glomerular Filt Rate 83 ml/min (>60); GFR (African American) 101 ML/MIN (>60)
[2022-03-12 16:55] LABS: Albumin Level 4.3 g/dl (3.5-5.0); Albumin/Globulin Ratio 1.9 (1.1-1.8); Alkaline Phosphatase 65 U/L (38-126); Anion Gap 8.8 mEq/L (5-15); Bilirubin,Total 0.4 mg/dl (0.2-1.3); Calcium 9.5 mg/dl (8.4-10.2); Carbon Dioxide 29 mmol/L (22.0-30.0); Globulin 2.3 g/dL (1.3-3.2); Glucose 102 mg/dl (74-100); Total Protein,Serum 6.6 g/dl (6.3-8.2)
[2022-03-12 17:01] LABS: C-Reactive Protein 4.5 mg/L (0-4)
[2022-03-12 17:19] LABS: Erythrocyte Sedimentation Rate 11 mm/hr (0-30)
== END ==
PROVIDERS: PCP Family Medicine; Visit Provider Podiatrist
DX: S90.424A Blister (nonthermal), right lesser toe(s), initial encounter (principal); E66.3 Overweight; Z68.25 Body mass index [BMI] 25.0-25.9, adult
CPT/HCPCS: 36415; 80053; 85025; 85651; 86140

== ENCOUNTER → 2022-08-21 10:10 | Outpatient (CLI) | payer MEDICARE, SELFPAY ==
--- NOTE | 2022-08-21 10:10 | MM_ITS ---
PROCEDURE INFORMATION: Exam: MG Bilateral Screening 3D Mammography Exam date and time: 08/21/2022 10:20 AM Age: 66 years old Clinical indication: Screening examination TECHNIQUE: Imaging protocol: Bilateral Screening tomosynthesis and 2D mammography including computer-aided detection (CAD) when performed. COMPARISON: 1. MG MM DIG MAMM DX UNILAT LT CAD 05/21/2020 1:51 PM 2. MG MM DIG SCREENING MAMM BI W/CAD 04/24/2020 8:32 AM FINDINGS: MAMMOGRAPHY: Breast composition: The breasts are heterogeneously dense, which may obscure small masses. Mass: 1.3 cm mass in the middle third of the right approximate 12 o'clock axis. 1.3 cm mass in the posterior third of the right upper breast only seen in the MLO projection Architectural distortion: None. Calcifications: No suspicious calcifications. Asymmetric density: None. Skin thickening: None. Axillary adenopathy: None. IMPRESSION: Patient to be recalled for spot compression views of the right breast in the exaggerated lateral CC and MLO projections, a full 90 degree lateral view, and right breast ultrasound for further evaluation of 2 right breast masses. ASSESSMENT: BI-RADS Category 0: Incomplete- Need Additional Imaging Evaluation and/or Prior Mammograms for Comparison
== END ==
PROVIDERS: PCP Family Medicine; Visit Provider Family Medicine
DX: Z12.31 Encounter for screening mammogram for malignant neoplasm of breast (principal)
CPT/HCPCS: 77063; 77067

== ENCOUNTER → 2022-10-02 13:03 | Outpatient (CLI) | payer MEDICARE, SELFPAY ==
--- NOTE | 2022-10-02 13:09 | US_ITS ---
PROCEDURE INFORMATION: Exam: US Right Breast, Complete Exam date and time: 10/02/2022 2:01 PM Age: 66 years old Clinical indication: Recall the basis of screening mammogram 08/21/2022 for sonographic evaluation of 1.3 cm mass in the right breast 12 o'clock middle 3rd and 1.3 cm mass in the posterior 3rd of the right upper breast only seen in the MLO projection. TECHNIQUE: Imaging protocol: Complete ultrasound of all four quadrants of the Right breast and the retroareolar regions, including ultrasound of the axilla when performed. COMPARISON: BR US BREAST-RT COMPLETE W/AXILLA 06/24/2016 1:45 PM FINDINGS: Breast: Right sonography, all 4 quadrants, retroareolar and axilla. Simple cysts at 11 o'clock 2 cm from the nipple measuring 2.6 x 1.0 x 2.6 cm and at 11 o'clock 3 cm from the nipple measuring 1.6 x 1.5 x 0.9 cm which is the best correlates to the mammographic findings. Scattered sub cm simple cysts and benign-appearing complicated cysts. No suspicious mass demonstrated. Unremarkable image of the right axilla. IMPRESSION: Screening detected masses correspond to simple cysts, with scattered benign-appearing cystic change. Annual screening mammography and sonography recommended unless otherwise clinically indicated. ASSESSMENT: BI-RADS Category 2: Benign
== END ==
PROVIDERS: PCP Family Medicine; Visit Provider Family Medicine
DX: R92.8 Other abnormal and inconclusive findings on diagnostic imaging of breast (principal)
CPT/HCPCS: 76641

== ENCOUNTER → 2023-05-06 08:12 | Outpatient (CLI) | payer MEDICARE, SELFPAY ==
[2023-05-06 08:41] LABS: Basophils % 0.6 % (0.1-2.0); Eosinophils # 0.5 K/mm3 (0.0-0.4); Eosinophils % 9.9 % (0.1-12.0); Hematocrit 45.4 % (37.0-47.0); Hemoglobin 14.9 g/dL (12.2-16.2); Lymphocytes # 1.7 K/mm3 (0.7-4.5); Lymphocytes % 36.1 % (10-50); Mean Corpuscular HGB Conc 32.8 g/dL (31.8-35.4); Mean Corpuscular Hemoglobin 30.6 pg (27.0-31.2); Mean Corpuscular Volume 93.1 fl (81-99); Mean Platelet Volume 7.8 fl (7.4-10.4); Monocytes # 0.3 K/mm3 (0.1-1.0); Monocytes % 5.3 % (1.7-9.3); Neutrophils # 2.3 K/mm3 (1.8-7.8); Neutrophils % 48.1 % (37.0-80.0); Platelet Count 243 K/mm3 (142-424); Red Blood Count 4.88 M/mm3 (4.20-5.40); Red Cell Distribution Width 12.6 % (11.5-17.5); White Blood Count 4.8 K/mm3 (4.8-10.8)
[2023-05-06 09:12] LABS: Alanine Aminotransferase 30 U/L (12-78); Albumin Level 4.1 g/dl (3.5-5.0); Albumin/Globulin Ratio 1.6 (1.1-1.8); Alkaline Phosphatase 74 U/L (38-126); Anion Gap 9.8 mEq/L (5-15); Aspartate Amino Transferase 30 U/L (14-36); Bilirubin,Total 0.6 mg/dl (0.2-1.3); Blood Urea Nitrogen 15 mg/dl (7-17); Calcium 8.8 mg/dl (8.4-10.2); Carbon Dioxide 27 mmol/L (22.0-30.0); Chloride 108 mmol/L (98-107); Chol/HDL Ratio 2.7 (1-3.5); Cholesterol 171 mg/dl (140-200); Estimated Glomerular Filt Rate 83 ml/min (>60); GFR (African American) 100 ML/MIN (>60); Globulin 2.6 g/dL (1.3-3.2); Glucose 98 mg/dl (74-100); HDL Cholesterol 64 mg/dl (40-60); Potassium 3.8 mmoL/L (3.5-5.1); Sodium 141 mmol/L (136-145); Total Protein,Serum 6.7 g/dl (6.3-8.2); Triglycerides 121 mg/dl (30-150); VLDL Cholesterol 24 mg/dL (0-40)
[2023-05-06 09:23] LABS: Direct LDL Cholesterol 77.64 mg/dL (100-129)
[2023-05-06 09:28] LABS: Free T4 (Free Thyroxine) 0.76 ng/dl (0.78-2.19)
[2023-05-06 09:29] LABS: 25-OH Vitamin D, Total 75.1 ng/mL (30-100)
[2023-05-06 09:42] LABS: Thyroid Stimulating Hormone 3.15 uIU/mL (0.465-4.68)
== END ==
PROVIDERS: PCP Internal Medicine; Visit Provider Internal Medicine
DX: I73.00 Raynaud's syndrome without gangrene (principal); Z00.00 Encounter for general adult medical examination without abnormal findings; I10 Essential (primary) hypertension; M85.89 Other specified disorders of bone density and structure, multiple sites; Z79.899 Other long term (current) drug therapy
CPT/HCPCS: 36415; 80053; 80061; 82306; 84439; 84443; 85025

== ENCOUNTER → 2023-05-18 08:14 | Outpatient (CLI) | payer MEDICARE, SELFPAY ==
--- NOTE | 2023-05-18 08:14 | XR_ITS ---
FINAL REPORT CLINICAL HISTORY: Recommended screening FINDINGS: Using L1-4, the bone mineral density of the spine is 1.069 g/cm2, corresponding to T-score of 0.2. Using the left hip, the bone mineral density of the femoral neck is 0.702 g/cm2, corresponding to a T-score of -1.3. Using the right hip, the bone mineral density of the femoral neck is the 0.700 g/cm2, corresponding to a T-score of -1.3. IMPRESSION: Low bone density of the bilateral hips consistent with osteopenia. Normal bone mineral density of the lumbar spine. Reviewed, Interpreted and Dictated by Elijah Peter MD Transcribed by Jason Cabrera Authenticated and [facility]
--- NOTE | 2023-05-18 08:14 | MM_ITS ---
PROCEDURE INFORMATION: Exam: MG Bilateral Screening 3D Mammography Exam date and time: 05/18/2023 8:11 AM Age: 67 years old Clinical indication: Screening examination; Family history of breast cancer in aunt TECHNIQUE: Imaging protocol: Bilateral Screening tomosynthesis and 2D mammography including computer-aided detection (CAD) when performed. COMPARISON: 1. MG MM DIG SCREENING MAMM BI W/CAD 08/21/2022 10:20 AM 2. MG MM DIG MAMM DX UNILAT LT CAD 05/21/2020 1:51 PM FINDINGS: MAMMOGRAPHY: Breast composition: The breasts are heterogeneously dense, which may obscure small masses. Mass: 3.08 cm ovoid mass in the posterior right upper breast only seen in the MLO projection is likely on the basis of underlying cystic change. Architectural distortion: None. Calcifications: No suspicious calcifications. Asymmetric density: None. Skin thickening: None. Axillary adenopathy: None. IMPRESSION: Patient to be recalled for spot compression views of the right breast in the exaggerated lateral CC and MLO projections, a full 90 degree lateral view, and right breast ultrasound for further evaluation of a right breast mass. ASSESSMENT: BI-RADS Category 0: Incomplete- Need Additional Imaging Evaluation and/or Prior Mammograms for Comparison
== END ==
PROVIDERS: PCP Internal Medicine; Visit Provider Internal Medicine
DX: Z13.820 Encounter for screening for osteoporosis (principal); Z12.31 Encounter for screening mammogram for malignant neoplasm of breast; Z78.0 Asymptomatic menopausal state
CPT/HCPCS: 77063; 77067; 77080

== ENCOUNTER → 2023-05-19 15:16 | Outpatient (CLI) | payer MEDICARE, SELFPAY ==
--- NOTE | 2023-05-19 15:16 | US_ITS ---
Ultrasound Sonograher: DENISSE/gurwinder PROCEDURE: US TRANSVAGINAL CLINICAL INDICATION: abnormal vaginal bleeding COMPARISON: No exams were available for comparison FINDINGS: Transvaginal sonographic images of the pelvis were obtained. UTERUS: Is surgically absent Vaginal cuff appears normal. There is no free fluid. No masses are seen in the vaginal canal. LEFT OVARY: Surgically absent RIGHT OVARY: Surgically absent. Both ovaries are surgically absent. There is no fluid in the cul-de-sac. IMPRESSION: 1. Uterus and ovaries are surgically absent. 2. The vaginal cuff appears normal. 3. There is no fluid in the cul-de-sac. 4. On examination of the vaginal canal there was no evidence of any masses. Dictated by: Kingston Alaniz MD 05/20/2023 15:43 Kingston Alaniz MD in OV 05/20/2023 15:43
== END ==
LOC: RAD 15:16
PROVIDERS: PCP Internal Medicine; Visit Provider Obstetrics & Gynecology
DX: N95.0 Postmenopausal bleeding (principal)
CPT/HCPCS: 76830

== ENCOUNTER → 2023-09-03 23:08 | Outpatient (CLI) | payer MEDICARE, SELFPAY ==
[2023-09-03 17:56] LABS: Barbiturates Screen,Urine Negative ng/ml (<200)
[2023-09-03 17:57] LABS: Amphetamine/Metha Screen,Urine Negative ng/ml (<1000)
[2023-09-03 17:58] LABS: Cannabinoid Screen,Urine Negative ng/ml (<50); Methadone Screen,Urine Negative ng/ml (<300)
[2023-09-03 17:59] LABS: Cocaine Screen,Urine Negative ng/ml (<300)
[2023-09-03 18:00] LABS: Opiate Screen,Urine Negative ng/ml (<300); Phencyclidine Screen,Urine Negative ng/ml (<25)
[2023-09-03 18:06] LABS: Benzodiazepines Screen,Urine Negative ng/ml (<200)
== END ==
PROVIDERS: PCP Nurse Practitioner Family; Visit Provider Nurse Practitioner Family
DX: R56.9 Unspecified convulsions (principal); Z79.899 Other long term (current) drug therapy
CPT/HCPCS: 80305

== ENCOUNTER 2024-04-28 14:02 | Outpatient (CLI) | payer MEDICARE, SELFPAY ==
[2024-04-28 13:30] LABS: Basophils # 0.1 K/mm3 (0-0.2); Basophils % 1.1 % (0.1-2.0); Eosinophils # 0.3 K/mm3 (0.0-0.4); Eosinophils % 5.5 % (0.1-12.0); Hematocrit 44.6 % (37.0-47.0); Lymphocytes % 34.8 % (10-50); Mean Corpuscular HGB Conc 33.7 g/dL (31.8-35.4); Mean Corpuscular Hemoglobin 31.4 pg (27.0-31.2); Mean Corpuscular Volume 93.1 fl (81-99); Mean Platelet Volume 8.1 fl (7.4-10.4); Monocytes # 0.4 K/mm3 (0.1-1.0); Monocytes % 7.5 % (1.7-9.3); Neutrophils # 2.9 K/mm3 (1.8-7.8); Neutrophils % 51.1 % (37.0-80.0); Platelet Count 300 K/mm3 (142-424); Red Blood Count 4.79 M/mm3 (4.20-5.40); Red Cell Distribution Width 13.5 % (11.5-17.5); White Blood Count 5.6 K/mm3 (4.8-10.8)
[2024-04-28 13:38] LABS: Albumin Level 4.3 g/dl (3.5-5.0); Chloride 103 mmol/L (98-107); Sodium 138 mmol/L (136-145)
[2024-04-28 13:39] LABS: Potassium 3.2 mmoL/L (3.5-5.1)
[2024-04-28 13:41] LABS: Alanine Aminotransferase 34 U/L (12-78); Albumin/Globulin Ratio 1.6 (1.1-1.8); Alkaline Phosphatase 84 U/L (38-126); Anion Gap 9.2 mEq/L (5-15); Aspartate Amino Transferase 36 U/L (14-36); Blood Urea Nitrogen 13 mg/dl (7-17); Carbon Dioxide 29 mmol/L (22.0-30.0); Cholesterol 200 mg/dl (140-200); Estimated Glomerular Filt Rate 83 ml/min (>60); GFR (African American) 100 ML/MIN (>60); Globulin 2.7 g/dL (1.3-3.2); Triglycerides 101 mg/dl (30-150); VLDL Cholesterol 20 mg/dL (0-40)
[2024-04-28 13:42] LABS: Calcium 9.2 mg/dl (8.4-10.2); Chol/HDL Ratio 2.9 (1-3.5); Glucose 94 mg/dl (74-100); HDL Cholesterol 70 mg/dl (40-60)
[2024-04-28 13:53] LABS: Direct LDL Cholesterol 92.99 mg/dL (100-129)
[2024-04-28 14:13] LABS: Thyroid Stimulating Hormone 1.26 uIU/mL (0.465-4.68)
[2024-04-28 16:57] LABS: 25-OH Vitamin D, Total 62.9 ng/mL (30-100)
[2024-04-28 17:39] LABS: Vitamin B12 > 1000 pg/mL (239-931)
[2024-04-30 07:58] LABS: Triiodothyronine (T3) Free 3.2 pg/mL (2.0-4.4)
[2024-05-02 16:38] LABS: Intrinsic Factor Abs, Serum 0.9 AU/mL (0.0-1.1)
== END 2024-04-28 23:59 | disposition home or self-care (01) ==
LOC: LAB.DROPOF 14:03
PROVIDERS: PCP Nurse Practitioner Family; Visit Provider Nurse Practitioner Family
DX: E03.9 Hypothyroidism, unspecified (principal); D64.9 Anemia, unspecified; E55.9 Vitamin D deficiency, unspecified; I10 Essential (primary) hypertension; R79.89 Other specified abnormal findings of blood chemistry; Z68.29 Body mass index [BMI] 29.0-29.9, adult; Z87.891 Personal history of nicotine dependence
CPT/HCPCS: 80050; 80053; 80061; 82306; 82607; 82728; 84443; 84481; 85025; 86340

== ENCOUNTER 2024-05-05 09:24 | Outpatient (CLI) | payer MEDICARE, SELFPAY ==
[2024-05-05 12:38] LABS: Basophils # 0.1 K/mm3 (0-0.2); Basophils % 1.5 % (0.1-2.0); Eosinophils # 0.4 K/mm3 (0.0-0.4); Eosinophils % 6.5 % (0.1-12.0); Hematocrit 40.9 % (37.0-47.0); Hemoglobin 15.3 g/dL (12.2-16.2); Lymphocytes # 1.8 K/mm3 (0.7-4.5); Lymphocytes % 31.2 % (10-50); Mean Corpuscular HGB Conc 37.4 g/dL (31.8-35.4); Mean Corpuscular Hemoglobin 35.9 pg (27.0-31.2); Mean Corpuscular Volume 95.9 fl (81-99); Mean Platelet Volume 8.4 fl (7.4-10.4); Monocytes # 0.4 K/mm3 (0.1-1.0); Monocytes % 6.7 % (1.7-9.3); Neutrophils % 54.1 % (37.0-80.0); Platelet Count 275 K/mm3 (142-424); Red Blood Count 4.27 M/mm3 (4.20-5.40); Red Cell Distribution Width 13.2 % (11.5-17.5); White Blood Count 5.6 K/mm3 (4.8-10.8)
[2024-05-05 13:06] LABS: Potassium 4.1 mmoL/L (3.5-5.1)
[2024-05-09 13:43] LABS: Lyme B. burgdorferi PCR Blood Negative (Negative)
== END 2024-05-05 23:59 | disposition home or self-care (01) ==
LOC: LAB.DROPOF 05-08 09:25
PROVIDERS: PCP Nurse Practitioner Family; Visit Provider Nurse Practitioner Family
DX: W57.XXXA Bitten or stung by nonvenomous insect and other nonvenomous arthropods, initial encounter (principal); E87.6 Hypokalemia
CPT/HCPCS: 84132; 85025; 87476

== ENCOUNTER 2024-05-23 16:36 | Outpatient (CLI) | payer MEDICARE, SELFPAY | END 2024-05-23 23:59 | disposition home or self-care (01) | LOC: LAB.DROPOF 16:36 | PROVIDERS: PCP Nurse Practitioner Family; Visit Provider Nurse Practitioner Family | DX: E87.6 Hypokalemia (principal) | CPT/HCPCS: 84132 ==

== ENCOUNTER 2024-07-07 11:32 | Outpatient (CLI) | payer MEDICARE, SELFPAY ==
[2024-07-07 11:50] LABS: Potassium 3.8 mmoL/L (3.5-5.1)
== END 2024-07-07 23:59 | disposition home or self-care (01) ==
LOC: LAB.DROPOF 11:33
PROVIDERS: PCP Nurse Practitioner Family; Visit Provider Nurse Practitioner Family
DX: E87.6 Hypokalemia (principal)
CPT/HCPCS: 84132

== ENCOUNTER 2025-01-30 11:41 | Outpatient (CLI) | payer MEDICARE, SELFPAY ==
--- NOTE | 2025-01-30 11:45 | XR_ITS ---
PROCEDURE INFORMATION: Exam: XR Left Tibia and Fibula Exam date and time: 01/30/2025 11:57 AM Age: 69 years old Clinical indication: Pain; Lower leg; Left; Additional info: Leg pain TECHNIQUE: Imaging protocol: Radiologic exam of the left tibia and fibula. Views: 2 views. COMPARISON: CR XR ANKLE LT MIN 3V 01/30/2025 11:57 AM FINDINGS: Bones/joints: No evidence of fracture or dislocation Soft tissues: Normal. IMPRESSION: Negative for fracture or dislocation
--- NOTE | 2025-01-30 11:45 | XR_ITS ---
PROCEDURE INFORMATION: Exam: XR Left Ankle Exam date and time: 01/30/2025 11:57 AM Age: 69 years old Clinical indication: Pain; Ankle; Left; Additional info: Leg pain TECHNIQUE: Imaging protocol: Radiologic exam of the left ankle. Views: 3 or more views. COMPARISON: CR XR TIBIA FIBULA LT 2V 01/30/2025 11:57 AM FINDINGS: Bones/joints: Normal. No evidence of fracture or dislocation Soft tissues: Normal. IMPRESSION: No acute findings.
[2025-01-30 18:06] LABS: D-Dimer 0.48 ug/mL (0.0-0.5)
[2025-01-30 18:19] LABS: Uric Acid 4.3 mg/dl (2.5-6.2)
== END 2025-01-30 23:59 | disposition home or self-care (01) ==
LOC: RAD 11:42
PROVIDERS: PCP Internal Medicine; Visit Provider Internal Medicine
DX: M79.605 Pain in left leg (principal); M79.89 Other specified soft tissue disorders; M25.572 Pain in left ankle and joints of left foot
CPT/HCPCS: 73590; 73610; 84550; 85378

== ENCOUNTER 2025-01-31 14:01 | Outpatient (CLI) | payer MEDICARE, SELFPAY ==
--- NOTE | 2025-01-31 14:30 | CA_ITS ---
FINAL REPORT TECHNIQUE: Ultrasound images of the deep venous system were obtained from the left groin to the calf veins. CLINICAL HISTORY: Pain, edema and heat in left calf and ankle x 1 week. Edema x 5 months Knot on Left medial calf. FINDINGS: The deep venous system is normally compressible. Normal flow is identified. IMPRESSION: No evidence of left lower extremity DVT. Reviewed, Interpreted and Dictated by Elijah Peter MD Transcribed by Lea Hong Authenticated and [facility]
== END 2025-01-31 23:59 | disposition home or self-care (01) ==
LOC: RT 14:02
PROVIDERS: PCP Internal Medicine; Visit Provider Internal Medicine
DX: M79.89 Other specified soft tissue disorders (principal); M79.662 Pain in left lower leg; R20.8 Other disturbances of skin sensation; R68.89 Other general symptoms and signs
CPT/HCPCS: 93971

== ENCOUNTER 2025-02-14 18:37 | Outpatient (CLI) | payer MEDICARE, SELFPAY ==
--- NOTE | 2025-02-14 16:00 | MR_ITS ---
FINAL REPORT CLINICAL HISTORY: Severe lower leg pain. left medial leg swelling COMPARISON: None FINDINGS: Multiplanar MR imaging of the left lower leg was performed without contrast. There is fusiform thickness of the Achilles tendon, well-seen on image 18 of series 11 consistent with chronic Achilles tear. There does not appear to be surrounding edema. The plantar fascia is intact. The ankle mortise is intact. There is moderate subcutaneous soft tissue edema throughout the lower leg. There is a small amount of pretibial fluid. No intra muscular edema or marrow edema is seen. 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 Subcutaneous soft tissue edema, nonspecific. No acute osseous abnormality. Reviewed, Interpreted and Dictated by Elijah Peter MD Transcribed by Sanjana Garsia Authenticated and [facility]
== END 2025-02-14 23:59 | disposition home or self-care (01) ==
LOC: RAD 18:38
PROVIDERS: PCP Internal Medicine; Visit Provider Internal Medicine
DX: S86.012A Strain of left Achilles tendon, initial encounter (principal)
CPT/HCPCS: 73718

== ENCOUNTER 2025-03-15 13:49 | Outpatient (CLI) | payer MEDICARE, SELFPAY ==
--- OUTSIDE RECORDS SUMMARY | 2025-03-15 13:53 | XMS_ITS | Clinical Summary ---
Author Organization Healthcare Address [address] [place] [address] Care Team Providers Care Guest Service Representative Name Role Phone Jeremiah Gibbs MD Primary Care Provider + [phone] Immunizations Immunization Administration Dates Next Due Influenza, seasonal, injectable 07/06/2016 Pneumococcal Conjugate PCV 13 09/05/2016 Family History Medical History Relation Name Comments Conversions - Other Other 1 Cancer, colon Conversions - Other Other 2 Degenera tive disc disease at L5-S1 level Arthritis Other 3 Diabetes Other 4 Lung cancer Other 5 Other cancer Other 6 Diabetes type II Other 7 Relation Name Status Comments Other 1 Other 2 Other 3 Other 4 Other 5 Other 6 Other 7 Social History Tobacco Use Types Packs/Day Years Used Date Smoking Tobacco: Former Alcohol Use Standard Drinks/Week Comments No 0 (1 standard drink = 0.6 oz pur e alcohol) Comments Unknown Sex and Gender Information Value Date Recorded Sex Assigned at Not on file Legal Sex Female 6:06 PM EDT Gender Identity Not on file Sexual Orientation Not on file Last Filed Vital Signs Vital Sign Reading Time Taken Comments Blood Pressure 125/72 01/16/2019 11:24 AM EDT Pulse 72 01/16/2019 11:24 AM EDT Temperature - - Respiratory Rate - - Oxygen Saturation - - Inhaled Oxygen Concentration - - Weight 65.2 kg (143 lb 11.8 oz) 019 11:24 AM EDT Height 160 cm (5' 3 ) 01/16/2019 11:24 AM EDT Body Mass Index 25.46 01/16/2019 11:24 AM EDT Plan of Treatment Not on file Care Teams Guest Service Representative Relationship Specialty Start Date End Date Jeremiah Gibbs MD [address] [place] [address] PCP - General 01/31/21
[2025-03-15 14:20] LABS: Basophils # 0.1 K/mm3 (0-0.2); Basophils % 0.9 % (0.1-2.0); Eosinophils # 0.4 Kmm3 (0.0-0.4); Eosinophils % 6.4 % (0.1-12.0); Hematocrit 40.7 % (37.0-47.0); Hemoglobin 14.5 g/dL (12.2-16.2); Immature Granulocytes # 0.01 10^3uL; Immature Granulocytes % 0.2 %; Lymphocytes # 2.1 K/mm3 (0.7-4.5); Lymphocytes % 33.4 % (10-50); Mean Corpuscular HGB Conc 35.6 g/dL (31.8-35.4); Mean Corpuscular Hemoglobin 30.9 pg (27.0-31.2); Mean Corpuscular Volume 86.8 fl (81-99); Mean Platelet Volume 9.8 fl (7.4-10.4); Monocytes # 0.5 K/mm3 (0.1-1.0); Monocytes % 8.5 % (1.7-9.3); Neutrophils # 3.2 K/mm3 (1.8-7.8); Neutrophils % 50.6 % (37.0-80.0); Nucleated Red Blood Cells # 0 10^3/uL; Nucleated Red Blood Cells % 0 %; Platelet Count 291 K/mm3 (142-424); Red Blood Count 4.69 M/mm3 (4.20-5.40); Red Cell Distribution Width 12.5 % (11.5-17.5); Red Cell Distribution Width-SD 39.8 fL; White Blood Count 6.4 K/mm3 (4.8-10.8)
[2025-03-15 15:24] LABS: C-Reactive Protein 8.6 mg/L (0-4)
[2025-03-15 15:45] LABS: Erythrocyte Sedimentation Rate 23 mm/hr (0-30)
== END 2025-03-15 23:59 | disposition home or self-care (01) ==
LOC: LAB 13:50
PROVIDERS: PCP Internal Medicine; Visit Provider Physician Assistant Surgical
DX: M76.822 Posterior tibial tendinitis, left leg (principal)
CPT/HCPCS: 36415; 85025; 85651; 86140

== ENCOUNTER 2025-05-01 12:17 | Outpatient (CLI) | payer MEDICARE, SELFPAY ==
--- OUTSIDE RECORDS SUMMARY | 2025-05-01 12:19 | XMS_ITS | Clinical Summary ---
Author Organization Healthcare Address [address] [place] [address] Care Team Providers Care Emr Analyst Name Role Phone Jeremiah Gibbs MD Primary Care Provider + [phone] Immunizations Immunization Administration Dates Next Due Influenza, [...] of Treatment Not on file Care Teams Emr Analyst Relationship Specialty Start Date End Date Jeremiah Gibbs MD [address] [place] [address] PCP - General 01/31/21
--- OUTSIDE RECORDS SUMMARY | 2025-05-01 12:19 | XMS_ITS | Clinical Summary ---
Author Organization [facility] ystem Address [address] [place] [address] Care Team Providers Care Marketing Systems Manager Name Role Phone Unavailable Primary Care Provider Unavailabl e Social History Tobacco Use Types Packs/Day Years Used Date Smoking Tobacco: Never Assessed Abuse Screen Answer Date Recorded Unsafe at Home or Work/School Not on file Feels Threatened by Someone? Not on file 07/2023 Does Anyone Keep You from Co ntacting Others or Doint Things Outside the Home? Not on file 06/30/2023 Physical Sign of Abuse Present Not on file 1 Housing Stability Answer Date Recorded Current Living Arrangements Not on file 06/20 Potentially Unsafe Housing Conditions Not on dave e 06/30/2023 Family and Community Support Answer Ryan e Recorded Help with Day-to-Day Activities Not on file 06/30/2023 Lonely or Isolated Not on file 06/30/2023 Employment Answer Date Recorded Do you want help finding or keeping work or a didi b? Not on file 06/30/2023 Disabilities Answer Date Recorded Concentrating, Remembering, or Making Decisions Difficulty Not on file 06/30/2023 Doing Errands Independently Difficulty Not on fi le 06/30/2023 Education Answer Date Recorded Help with school or training? Not on file Preferred Language Not on file 06/30/2023 Comments Unknown Sex and Gender Information Value Date Recorded Sex Assigned at Not on file Legal Sex Female 12:22 PM EDT Gender Identity Not on file Sexual Orientation Not on file Last Filed Vital Signs Vital Sign Reading Time Taken Comments Blood Pressure 118/71 08/15/2014 11:28 AM EST Pulse 56 06/19/2014 2:09 PM EDT Temperature - - Respiratory Rate 16 06/19/2014 2:09 PM EDT Oxygen Saturation - - Inhaled Oxygen Concentration - - Weight 62.6 kg (138 lb 0.1 oz) 08/15/2014 11:28 AM EST Height 163.8 cm (5' 4.5 ) 08/15/2014 11:28 AM ES T Body Mass Index 23.32 08/15/2014 11:28 AM EST Plan of Treatment Health Maintenance Due Date Last Done Comments ANNUAL PHYSICAL 1955 DXA SCAN 1955 HEPATITIS C SCREENING 1955 TDAP/TD VACCINES (1 - Tdap) 1972 MAMMOGRAM 1993 COLOGUARD 1998 COLON CANCER SCREENING 5 YEAR SIGMOIDOSCOPY 1998 COLONOSCOPY 1998 COLORECTAL CANCER SCREENING 1998 CT COLONOGRAPHY 1998 FECAL OCCULT BLOOD TEST 1998 FIT Testing (1 year) 1998 Pneumococcal Vaccine 50+ (1 of 1 - PCV) 2003 ZOSTER VACCINE (1 of 2) 2003 COVID-19 Vaccine (1 - season) 2024 INFLUENZA VACCINE 06/20/2025
--- NOTE | 2025-05-01 13:30 | CA_ITS ---
FINAL REPORT CLINICAL HISTORY: BILATERAL LEG PAIN,EDEMA,CLAUDICATION FINDINGS: BILATERAL LOWER EXTREMITY DUPLEX DOPPLER Color Doppler and duplex Doppler of the bilateral lower extremity was performed. Spectral analysis was also performed. Velocities were measured at multiple levels. All velocities are in centimeters per second. RIGHT BIOTECHNICIAN: 113 Prof: 54 SFA Prox: 97 SFA Mid: 76 SFA Distal: 88 Popliteal: 75 CORN BREEDER Prox: 100 CORN BREEDER Mid: 80 CORN BREEDER Dist: 112 Per Prox: 71 ELI: 103 Waveforms are triphasic. LEFT BIOTECHNICIAN: 129 Prof: 59 SFA Prox: 87 SFA Mid: 82 SFA Distal: 70 Popliteal: 68 CORN BREEDER Prox: 94 CORN BREEDER Mid: 94 CORN BREEDER Dist: 82 Per Prox: 81 ELI: 87 Waveforms are triphasic. IMPRESSION: Waveforms are noted to be triphasic. No levels of stenosis or occlusion are identified. Reviewed, Interpreted and Dictated by Vesta Bledsoe MD Transcribed by Sanjana Garsia Authenticated and . [facility]
== END 2025-05-01 23:59 | disposition home or self-care (01) ==
LOC: RT 12:18
PROVIDERS: PCP Internal Medicine; Visit Provider Internal Medicine
DX: I73.9 Peripheral vascular disease, unspecified (principal); M79.89 Other specified soft tissue disorders; M79.605 Pain in left leg; I99.8 Other disorder of circulatory system; R60.0 Localized edema
CPT/HCPCS: 93925

== ENCOUNTER 2025-05-15 08:00 | Outpatient (RCR) | payer MEDICARE, SELFPAY ==
--- NOTE | 2025-05-01 15:04 | HMH.PTOPEV ---
PT Outpatient Evaluation Rehab PT Outpatient Evaluation Start: 05/01/25 08:58 Freq: Status: Active Protocol: Document 05/01/25 08:58 ASHLEY (Rec: 05/01/25 15:04 ASHLEY [id number]) E-signed By Laina Oscar, PT Outpatient Therapy Subjective History Subjective History Pt is a 69 y/o female who reports insidious onset of L medial lower leg pain in January without known trauma or injury. Pt had a L ankle and tibia/fibula radiograph on 01/30/25 without acute findings and a venous doppler study on 01/31 without significant findings. Pt then had a LLE MRI on 02/14/25 with impression of Pronounced chronic partial tear of the Achilles tendon. Subcutaneous soft tissue edema, nonspecific. No acute osseous abnormality. Pt states she saw ortho and was diagnosed with posterior tibialis tendonitis and was also scheduled to have an arterial study later this date to rule out vascular involvement. Pt reports she was placed in a tall walking boot for 3 weeks without improvement in symptoms, states it actually worsened swelling and caused numbness of the medial ankle. Pt reports she has been put off of work for ~6 weeks. Pt reports she was initially prescribed a muscle relaxer, compound cream and a Diclofenac Sodium without improvement in symptoms. Pt reports continued sharp pain that starts at the medial malleoli and radiates up the medial aspect of her leg to the her mid jacobs. Pt reports pain is aggravated by walking on uneven ground, prolonged standing, walking, and stairclimbing. Pt states she has a limp because putting more weight on the LLE causes pain, pt denies falls or use of an AD. Occupation: part-time at [email or web address] involves 8 hrs of walking on concrete Medical History: Hypertension, Osteopenia New diagnosis of No cancer in past 12 months? Chief Complaint Pain,Swelling,Paresthesia Symptom Type Sharp,Numbness,Shooting Symptoms Relieved By Nothing Symptoms Aggravated Standing,Physical Activity,Walking By Current Functional Standing,Walking,Stairs Limitations Symptom Description Constant but Variable Level of pain today 8 (0-10) Pain scale - at its 7 best (0-10) Pain scale - at its 10 worst (0-10) Ankle/Foot Eval Gait Observation General Gait Pattern Antalgic Gait,Decrease Weight Bear (L) Observation Assistive Device Ambulation Assistive None Device Palpation Tenderness left Ankle/Foot Palpation Tenderness Findings Ankle/Foot Palpation peroneal mm&tt, posterior tib mm&tt, medial malleoli, Overall Comment distal achilles ROM Ankle/Foot 8 Dorsiflexion w/Knee Extended Active Range Motion ( degrees) Ankle/Foot Plantar 45 Flexion Active Range of Motion (degrees) Ankle/Foot Eversion 12 Active Range of Motion (degrees) Ankle/Foot Inversion 22 Active Range of Motion (degrees) MMT Ankle Dorsiflexion 4 Good Strength Grade Ankle Plantarflexion 4 Good Strength Grade Foot Eversion 4- Good- Strength Grade Foot Inversion 4- Good- Strength Grade Special Tests Foot/Heel Tap/ Negative Left Percussion Test Lower Extremity Functional Index Activities Today, do you or would you have any difficulty at all with: a.Any of your usual Moderate difficulty work, housework or school activities b. Your usual Quite a bit of difficulty hobbies, recreational or sporting activities c. Getting into or Quite a bit of difficulty out of the bath d. Walking between Moderate difficulty rooms e. Putting on your Moderate difficulty shoes or socks f. Squatting Moderate difficulty g. Lifting an object Moderate difficulty , like a bag of groceries from the floor h. Performing light Moderate difficulty activities around your home i. Performing heavy Quite a bit of difficulty activities around your home j. Getting into or Quite a bit of difficulty out of a car k. Walking 2 blocks Quite a bit of difficulty l. Walking a mile Extreme difficulty or unable to perform activity m. Going up or down Extreme difficulty or unable to perform activity 10 stairs (about 1 flight of stairs) n. Standing for 1 Extreme difficulty or unable to perform activity hour o. Sitting for 1 Moderate difficulty hour p. Running on even Extreme difficulty or unable to perform activity ground q. Running on uneven Extreme difficulty or unable to perform activity ground r. Making sharp Extreme difficulty or unable to perform activity turns while running fast s. Hopping Extreme difficulty or unable to perform activity t. Rolling over in A little bit of difficulty bed LEFI Score Lower Extremity 22 Functional Index Score Miscellaneous Dx PT Eval Objective Objective Edema: malleoli circumference 27cm, figure 8 60 cm Discoloration noted of medial lower legs bilaterally, L is hypersensitive to light touch with firm edema noted Capillary refill: LLE 3 Distal pulses intact Outpatient Therapy Assessment Impairments Problems/ Palpation Tenderness,Impaired Range of Motion,Impaired Impairmments Strength,Impaired Gait Pattern,Impaired Walking, Impaired Standing,Impaired Household Care,Impaired Stair Climbing,Impaired Incline Stepping,Impaired Stepping on Uneven Surface,Impaired Work Activities, Increased Edema,Lymphedema Present,Subjective C/O Pain, Impaired Self Care/Self Management Prognosis Rehab Potential Good Clinical Impression Consistent with Yes Diagnosis Additional details: differential diagnoses include PVD vs. PAD with vascular study scheduled later this date PT Patient Goals PT Patient Goals PT Short Term 3 weeks: Patient Goals 1. Pt to verbalize compliance with HEP to assist with overall progress. 2. Improve pain at worst to 8/10 to improve overall QOL . 3. Improve LEFI score to 32/80 to improve overall QOL. PT Alf Patient 6 weeks: Goals 1. Demonstrate non-antalgic gait to decrease fall risk. 2. Improve L ankle AROM to WNL to assist with function. 3. Improve LLE MMT to 4-4+/5 grossly to assist with function. 4. Improve LEFI score to 42/80 to improve overall QOL. 5. Improve pain at worst to 6/10 to improve overall QOL . 6. Improve LLE edema equal to opposite limb to assist with pain and mobility. Outpatient Therapy Plan of Care Treatment Plan May Include Therapeutic Exercise Yes Including Home Exercise Program Manual Therapy Yes Techniques Neuromuscular Re- Yes education Therapeutic Yes Activities to Return to Previous Functional/Work Level Gait Training Yes ADL/Self Care Yes Education Thermal Modalities Yes Electrical Yes Stimulation Ultrasound/ Yes Phonophoresis Iontophoresis Yes Orthotics/Bracing/ Yes Splinting Vasopneumatic Yes Compression Pump Massage Yes Manual Lymphatic Yes Drainage Group Therapy for Yes Medicare Eval/Re-Eval Yes Aquatic Therapy Yes Frequency Times per week 2 Duration Number of Weeks 4-6 Addendums This patient is a No candidate for social or vocational rehab ? Patient/Guardian Yes verbally acknowledges understanding of treatment program and consents to further treatment? Patient/Guardian Yes verbally acknowledges understanding of diagnosis, prognosis and goals for treatment? Eval Complexity PT Charges 39408 - Low Complexity Shoulder/Elbow Eval Shoulder Objective Measurements Elbow Objective Measurements PHYSICIAN CERTIFICATION: I certify the specified therapy services for Annabelle Israel are required, authorized, and reviewed every 30 days.
== END 2025-05-15 23:59 | disposition home or self-care (01) ==
LOC: PT 08:00
PROVIDERS: PCP Internal Medicine; Visit Provider Physician Assistant Surgical
DX: M76.822 Posterior tibial tendinitis, left leg (principal)
CPT/HCPCS: 97110; 97161

== ENCOUNTER 2025-06-05 09:34 | Outpatient (CLI) | payer MEDICARE, SELFPAY ==
--- NOTE | 2025-06-05 10:00 | MM_ITS ---
PROCEDURE INFORMATION: Exam: MG Bilateral Screening 3D Mammography Exam date and time: 06/05/2025 9:55 AM Age: 69 years old Clinical indication: Screening mammogram TECHNIQUE: Imaging protocol: Bilateral Screening tomosynthesis and 2D mammography including computer-aided detection (CAD) when performed. COMPARISON: 1. MG MM DIG SCREENING MAMM BI W/CAD 05/18/2023 8:11 AM 2. MG MM DIG SCREENING MAMM BI W/CAD 08/21/2022 10:20 AM 3. MG MM DIG MAMM DX UNILAT LT CAD 05/21/2020 1:51 PM 4. MG MM DIG SCREENING MAMM BI W/CAD 04/24/2020 8:32 AM FINDINGS: MAMMOGRAPHY: Breast composition: The breast is heterogeneously dense, which may obscure small masses. Mass: Waxing and waning right-sided nodules previously characterized as cysts. No morphologically suspicious or dominant mass is present within either breast to suggest malignancy. Architectural distortion: No new or suspicious architectural distortion. Calcifications: No new or suspicious calcifications are present Asymmetric density: No new or suspicious asymmetric density is present Skin thickening: None. Axillary adenopathy: None. IMPRESSION: No mammographic evidence of malignancy. Recommend annual screening mammography unless otherwise clinically indicated. ASSESSMENT: BI-RADS category 2: Benign.
--- OUTSIDE RECORDS SUMMARY | 2025-06-05 10:03 | XMS_ITS | Clinical Summary ---
Author Organization Healthcare Address [address] [place] [address] Care Team Providers Care Commercial Analyst Name Role Phone Jeremiah Gibbs MD Primary Care Provider + [phone] Immunizations Immunization Administration Dates Next Due Influenza, [...] of Treatment Not on file Care Teams Commercial Analyst Relationship Specialty Start Date End Date Jeremiah Gibbs MD [address] [place] [address] PCP - General 01/31/21
--- OUTSIDE RECORDS SUMMARY | 2025-06-05 10:03 | XMS_ITS | Clinical Summary ---
Author Organization [facility] Address [address] [place] [address] Care Team Providers Care Police Reserves Commander Name Role Phone Unavailable Primary Care Provider [...] 2) 2003 COVID-19 Vaccine (1 - season) 2025 INFLUENZA VACCINE 06/20/2025
== END 2025-06-05 23:59 | disposition home or self-care (01) ==
LOC: RAD 09:34
PROVIDERS: PCP Internal Medicine; Visit Provider Internal Medicine
DX: Z12.31 Encounter for screening mammogram for malignant neoplasm of breast (principal); R92.333 Mammographic heterogeneous density, bilateral breasts; N60.01 Solitary cyst of right breast
CPT/HCPCS: 77063; 77067

== ENCOUNTER 2025-06-21 12:10 | Outpatient (CLI) | payer MEDICARE, SELFPAY ==
[2025-06-21 17:26] LABS: Iron 107 ug/dL (37-170)
[2025-06-21 17:38] LABS: Total Iron Binding Capacity 266 ug/dL (265-497)
[2025-06-21 18:05] LABS: Ferritin 97.6 ng/ml (11.1-264)
--- OUTSIDE RECORDS SUMMARY | 2025-06-22 11:05 | XMS_ITS | Clinical Summary ---
Author Organization Healthcare Address [address] [place] [address] Care Team Providers Care Loan Originator Name Role Phone Jeremiah Gibbs MD Primary Care Provider + [phone] Immunizations Immunization Administration Dates Next Due Influenza, [...] of Treatment Not on file Care Teams Loan Originator Relationship Specialty Start Date End Date Jeremiah Gibbs MD [address] [place] [address] PCP - General 01/31/21
--- OUTSIDE RECORDS SUMMARY | 2025-06-22 11:05 | XMS_ITS | Clinical Summary ---
Author Organization [facility] Address [address] [place] [address] Care Team Providers Care Well Driller Helper Name Role Phone Unavailable Primary Care Provider [...] 2003 ZOSTER VACCINE (1 of 2) 2003 INFLUENZA VACCINE 04/20/2025 COVID-19 Vaccine ( - season) 2025
== END 2025-06-21 23:59 ==
LOC: LAB.DROPOF 06-22 11:02
PROVIDERS: PCP Internal Medicine; Visit Provider Internal Medicine
DX: D64.9 Anemia, unspecified (principal); G25.81 Restless legs syndrome
CPT/HCPCS: 82728; 83540; 83550

== ENCOUNTER 2025-08-06 08:52 | Outpatient (CLI) | payer MEDICARE, SELFPAY ==
[2025-08-06] MEDS: ISOTOPE MDP (BONE);1 DOSE VIAL IV (09:45)
[2025-08-06] MEDS: SODIUM CHLORIDE 0.9% 10ML SYR (RAD ONLY) 10 ML IV (09:45)
--- NOTE | 2025-08-06 10:30 | NM_ITS ---
FINAL REPORT TECHNIQUE: Nuclear medicine three-phase bone scan was performed. 26.3 MCI of TC MDP. CLINICAL HISTORY: Evaluation of Complex Regional Pain Syndrome lt ankle, pain 9:05am 26.3 mci tc mdp FINDINGS: On flow images there is symmetric activity in the lower legs. On blood pool imaging there is mild asymmetric uptake at the inferior extent at the left gastrocnemius musculature. This may be physiologic. On delayed imaging there is a small focus of abnormal activity in the right medial distal tibial shaft. There is generalized asymmetric activity surrounding the left ankle. IMPRESSION: 1. Small focus of abnormal uptake in the medial distal right tibia, recommend correlation with plain films. 2. Generalized increased activity about the left ankle which could be due to soft tissue inflammation. No discrete osseous abnormality. No plain films were submitted for comparison. Reviewed, Interpreted and Dictated by Elijah Peter MD Transcribed by Milly Momin Authenticated and . [facility]
== END 2025-08-06 23:59 | disposition home or self-care (01) ==
LOC: RAD 08:54
PROVIDERS: PCP Internal Medicine; Visit Provider Podiatrist
DX: M19.071 Primary osteoarthritis, right ankle and foot (principal); M19.072 Primary osteoarthritis, left ankle and foot; G90.522 Complex regional pain syndrome I of left lower limb; G89.4 Chronic pain syndrome; R93.6 Abnormal findings on diagnostic imaging of limbs
CPT/HCPCS: 78315; A9503